=== PATIENT | female | born 1960 | race Caucasian/White ===

== ENCOUNTER 2016-06-18 16:02 | Emergency (ER) | payer SELFPAY ==
[2016-06-18] MEDS ORDERED: Lidocaine 2% Jelly 10 ML Urojet MUCMEM ONE (16:29)
[2016-06-18] MEDS ORDERED: HYDROmorphone 1 MG/ML Syringe IM ONE (16:35)
--- NOTE | 2016-06-18 16:57 | EDM.PDOC ---
ED HPI GI/ABDOMINAL - General Chief Complaint: Gastrointestinal Problem Stated Complaint: RECTAL PAIN Time Seen by Provider: 06/18/16 16:26 Source of Information: Reports: Patient History Limitations: Reports: No limitations - History of Present Illness INITIAL COMMENTS - FREE TEXT/NARRATIVE: Patient is a 55-year-old female who presents to the ED complaining of rectal pain. States she has a rectal fissure. She was evaluated by Dr. Polk today that required rectal exam. Since the exam patient has noted severe pain. Patient denies any bleeding or BM since evaluation. Last BM was this a.m. with formed stool and significant amount of pain. States she has multiple pelvic complaints and is being evaluated by DOCTOR OF CHIROPRACTIC specialist, urology, and of course Dr. Polk. She has a CT scheduled in 2 days to evaluate for nerve damage to the lower abdomen. The patient had a hernia repair many years ago with mesh that had to be removed and since then she's been experiencing increasing pain to the anterior aspect of her abdomen. In addition she's had a bladder mesh placed. She's had 3 C-sections. States discomfort currently experiencing to the pelvic region has not worsened with rectal discomfort. She offers no additional complaints. Timing/Duration: Reports: Constant, Getting worse Location: other (rectum) Quality: Reports: ache, throbbing Severity: severe Improves with: Reports: other (nothing) Worsens with: Reports: palpation - Related Data Allergies/ADRs: Allergies Allergy/AdvReac Type Severity Reaction Status Date / Time Sulfa (Sulfonamide Allergy Hives Verified 05/17/16 18:28 Antibiotics) Home Meds: Home Meds Ibuprofen 1,000 mg PO DAILY PRN 05/10/15 [History] Famotidine [Pepcid] 20 mg PO DAILY 06/18/16 [History] Past Medical History - Past Health History Medical/Surgical History: Denies Medical/Surgical History Other HEENT History: tooth extraction Gastrointestinal History: Reports: GERD Other Gastrointestinal History: Nausea [employer] CHIR[employer]RA[employer] History: Reports: 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, Musculoskeletal History: Reports: Back pain, chronic Neurological History: Reports: Concussion, Headaches, chronic Psychiatric History: Reports: Anxiety, Depression - Past Surgical History GI Surgical History: Reports: Hernia, abdominal Female Surgical History: Reports: section, Hysterectomy, Salpingo- oophorectomy, Tubal ligation Neurological Surgical History: Reports: C-Spine Musculoskeletal Surgical History: Reports: ORIF Social & Family History - Family History Family Medical History: Noncontributory - Tobacco Use Smoking Status *Q: Current Every Day Smoker Years of Tobacco use: 30 Packs/Tins Daily: 0.2 Used Tobacco, but Quit: No Second Hand Smoke Exposure: Yes - Caffeine Use Caffeine Use: Reports: Coffee - Recreational Drug Use Recreational Drug Use: No - Living Situation & Occupation Living situation: Reports: , with spouse Occupation: unemployed ED ROS GENERAL - Review of Systems Review Of Systems: See Below Constitutional: Denies: fever, chills, decreased appetite Respiratory: Denies: Shortness of Breath, Cough, Sputum Cardiovascular: Reports: Palpitations. Denies: Chest pain, Dyspnea on exertion , Lightheadedness, Syncope GI/Abdominal: Reports: Abdominal pain, Constipation, Diarrhea. Denies: Nausea, Vomiting : Reports: dysuria (chronic). Denies: discharge, flank pain, frequency, urgency, urinary retention Musculoskeletal: Reports: no symptoms Neurological: Denies: Dizziness Psychiatric: Reports: Anxiety ED EXAM, GI/ABD - Physical Exam Exam: See Below Exam Limited By: No limitations General Appearance: alert, WD/WN, moderate distress Eyes: bilateral: normal appearance Ears: hearing grossly normal Nose: normal inspection Throat/Mouth: Normal voice, No airway compromise Neck: normal inspection, supple Respiratory/Chest: no respiratory distress, lungs clear, normal breath sounds, no accessory muscle use Cardiovascular: normal peripheral pulses, regular rate, rhythm GI/Abdominal: normal bowel sounds, soft, non tender (mild tenderness to the lower abdmomen.This is chronic due to many surgies. Seeing Dr. Polk.), no organomegaly, no distention Rectal (Female) Exam: Tenderness (rectum), Other (No digital rectal exam performed. ). No: Hemorrhoids, Mass, Perirectal abscess Neurological: alert, oriented, normal cognition Psychiatric: normal affect, normal mood Skin Exam: Warm, Dry, Intact, Normal color Course - Vital Signs Last Recorded V/S: Last Vital Signs Temp 97.3 F 06/18/16 16:19 Pulse 63 06/18/16 19:22 Resp 14 06/18/16 19:22 BP 125/74 06/18/16 19:22 Pulse Ox 99 06/18/16 19:22 - Orders/Labs/Meds Orders: Active Orders 24 hr Category Date Time Status EKG 12 Lead [EKG Documentation Completion] [RC] STAT Care 06/18/16 16:45 Active Labs: Laboratory Tests 06/18/16 06/18/16 Range/Units 17:20 17:20 WBC 7.80 (3.98-10.04) K/mm3 RBC 3.85 L (3.98-5.22) M/mm3 Hgb 12.2 (11.2-15.7) gm/L Hct 35.4 (34.1-44.9) % MCV 91.9 (79.4-94.8) fl MCH 31.7 (25.6-32.2) pg MCHC 34.5 (32.2-35.5) g/dl RDW Std Deviation 42.2 (36.4-46.3) fL Plt Count 185 (182-369) K/mm3 MPV 9.4 (9.4-12.3) fl Neut % (Auto) 30.7 L (34.0-71.1) % Lymph % (Auto) 42.1 (19.3-51.7) % [place] % (Auto) 7.3 (4.7-12.5) % Eos % (Auto) 17.7 H (0.7-5.8) Baso % (Auto) 2.1 H (0.1-1.2) % Neut # 2.40 (1.56-6.13) K/mm3 Lymph # 3.28 (1.18-3.74) K/mm3 [place] # 0.57 H (0.24-0.36) K/mm3 Eos # 1.38 H (0.04-0.36) K/mm3 Baso # 0.16 H (0.01-0.08) K/mm3 Manual Slide Review Normal smear Sodium 138 (136-145) mEq/L Potassium 4.1 (3.5-5.1) mEq/L Chloride 102 (98-107) mEq/L Carbon Dioxide 27 (21-32) mEq/L Anion Gap 13.1 (5-15) BUN 8 (7-18) mg/dL Creatinine 0.7 (0.55-1.02) mg/dL Est Cr Clr Drug Dosing 69.33 mL/min Estimated GFR (MDRD) > 60 (>60) mL/min BUN/Creatinine Ratio 11.4 L (14-18) Glucose 96 (74-106) mg/dL Calcium 9.0 (8.5-10.1) mg/dL Total Bilirubin 0.6 (0.2-1.0) mg/dL AST 17 (15-37) U/L ALT 25 (14-59) U/L Alkaline Phosphatase 54 (46-116) U/L Troponin I < 0.017 (0.00-0.056) ng/mL C-Reactive Protein < 0.2 (<1.0) mg/dL Total Protein 6.8 (6.4-8.2) g/dl Albumin 3.9 (3.4-5.0) g/dl Globulin 2.9 gm/dL Albumin/Globulin Ratio 1.3 (1-2) Meds: Medications Discontinued Medications Generic Name Dose Route Start Last Admin Trade Name Freq PRN Reason Stop Dose Admin Hydromorphone HCl 1 mg 06/18/16 16:35 06/18/16 16:43 Dilaudid IM 06/18/16 16:36 1 mg ONETIME ONE Administration Lidocaine HCl 10 ml 06/18/16 16:29 06/18/16 16:44 Xylocaine 2% Jelly MUCMEM 06/18/16 16:30 10 ml ONETIME ONE Administration - Re-Assessments/Exams Free Text/Narrative Re-Assessment/Exam: Ordered Dilaudid 1mg IM and viscous lidocaine. 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 Examination did not reveal any external abnormalities. Tip of euroject placed into rectum Patient had pain with doing this. 2mls of solution injected. Dilaudid 1mg IM was administered as well. 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 She has felt anxious all day with recent events. She feels intermittent palpitations. Will obtain basic labs, CXR , and EKG. 06/18/16 16:53 06/18/16 18:15 labs reviewed: White blood cell count 7.0, hemoglobin is 12.2, platelet 25, sodium is 138, potassium 4.1, creatinine 0.7, troponin within normal limits. EKG: Sinus rhythm rate 64, normal p axis, NH interval 150, QTc 405. No acute ST changes noted. Telemetry strips reviewed: Sinus rhythm with occasional PAC' s. CXR reviewed by Dr. Sandoval and myself with no acute findings. Reassessment, patient resting comfortably in bed with significant decrease in pain with the above therapies. Will discharge patient home with instructions as documented. Departure - Departure Time of Disposition: 18:18 Disposition: Home, Self-Care 01 Condition: good Clinical Impression: Chronic rectal pain, Sinus arrhythmia Instructions: Anal Fissure, Adult, [id number] Referrals: PCP,None [Primary Care Provider] - Forms: ED Department Discharge Additional Instructions: No driving this evening with receiving a sedative medication while in the E.D. Take miralax 1 capful daily with copious amounts of water. Increase fiber intake. Take tylenol and ibuprofen in alternating fashion for pain as needed. Follow up with if you develop continued pain to rectum. Return to the E.D. for any new or worsening symptoms. - My Orders Last 24 Hours: My Active Orders 06/18/16 16:45 EKG 12 Lead [EKG Documentation Completion] [RC] STAT - Assessment/Plan Last 24 Hours: My Active Orders 06/18/16 16:45 EKG 12 Lead [EKG Documentation Completion] [RC] STAT
[2016-06-18 19:24] VITALS: BP 125/74
--- NOTE | 2016-06-19 07:10 | CR ---
Chest: Portable view of the chest was obtained. Comparison: Previous chest x-ray of 05/03/15. Heart size and mediastinum are normal. Lungs are clear. Bony structures are grossly intact. Impression: 1. Nothing acute is identified on portable chest x-ray. Diagnostic code #1
== END 2016-06-18 18:32 | disposition home or self-care (01) ==
LOC: JD.ED 16:02
DX: K62.89 Other specified diseases of anus and rectum (principal); I49.9 Cardiac arrhythmia, unspecified; G89.29 Other chronic pain; K21.9 Gastro-esophageal reflux disease without esophagitis; F41.8 Other specified anxiety disorders; F17.210 Nicotine dependence, cigarettes, uncomplicated; Z90.710 Acquired absence of both cervix and uterus; Z98.890 Other specified postprocedural states; Z79.899 Other long term (current) drug therapy; Z88.2 Allergy status to sulfonamides
CPT/HCPCS: 36415; 71010; 80053; 84484; 85025; 86140; 93005; 96372; 99284; J1170

== ENCOUNTER 2016-10-21 21:06 | Emergency (ER) | payer SELFPAY ==
[2016-10-21 21:19] VITALS: BP 123/86
[2016-10-21] MEDS ORDERED: Acetaminophen/oxyCODONE 325-5 MG Tab PO ONE (21:33)
[2016-10-21] MEDS ORDERED: Ondansetron 4 MG Tab.DIS PO ONE (21:33)
--- NOTE | 2016-10-21 21:59 | EDM.PDOC ---
ED HPI GENERAL MEDICAL PROBLEM - General Chief Complaint: Lower Extremity Injury/Pain Stated Complaint: INJURED RT LEG AND SHOULDER Time Seen by Provider: 10/21/16 21:23 Source of Information: Reports: Patient History Limitations: Reports: No Limitations - History of Present Illness INITIAL COMMENTS - FREE TEXT/NARRATIVE: The patient fell down the stairs this afternoon at 3pm. She slipped on the stairs and afshin her right shoulder and wrist and then fell on her right buttock and now she has pain to the right hip and right lower back. She has a history of a pelvic fracture. She not his her head or hurt her neck. She has no chest pain or abdominal pain. Onset: Sudden Duration: Hour(s): (3pm today) Location: Reports: Back (Lower), Pelvis, Lower Extremity, Right (Hip) Quality: Reports: Sharp Severity: Moderate Improves with: Reports: None Worsens with: Reports: Movement Context: Reports: Activity (Fell down the stairs) Associated Symptoms: Reports: No Other Symptoms Right Leg Pain Score (Numeric/FACES): 7 - Related Data Allergies Allergy/AdvReac Type Severity Reaction Status Date / Time Sulfa (Sulfonamide Allergy Hives Verified 10/21/16 21:18 Antibiotics) Home Meds: Home Meds Ibuprofen 1,000 mg PO DAILY PRN 05/10/15 [History] Famotidine [Pepcid] 20 mg PO DAILY PRN 06/18/16 [History] Past Medical History - Past Health History Medical/Surgical History: Denies Medical/Surgical History Other HEENT History: tooth extraction Gastrointestinal History: Reports: GERD 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 History: Reports: 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, Musculoskeletal History: Reports: Back Pain, Chronic, Other (See Below) Other Musculoskeletal History: broken pelvis and neck Neurological History: Reports: Concussion, Headaches, Chronic Other Neuro History: "scar on brain" Psychiatric History: Reports: Anxiety, Depression - Past Surgical History GI Surgical History: Reports: Hernia, Abdominal Female Surgical History: Reports: Section, Hysterectomy, Salpingo- Oophorectomy, Tubal Ligation Social & Family History - Family History Family Medical History: Noncontributory - Tobacco Use Smoking Status *Q: Current Every Day Smoker Years of Tobacco use: 25 Packs/Tins Daily: 0.5 Used Tobacco, but Quit: No Second Hand Smoke Exposure: Yes - Caffeine Use Caffeine Use: Reports: Coffee - Recreational Drug Use Recreational Drug Use: No - Living Situation & Occupation Living situation: Reports: , with Spouse Occupation: Unemployed Review of Systems - Review of Systems Review Of Systems: See Below Constitutional: Reports: No Symptoms Eyes: Reports: No Symptoms Ears: Reports: No Symptoms Nose: Reports: No Symptoms Mouth/Throat: Reports: No Symptoms Respiratory: Reports: No Symptoms Cardiovascular: Reports: No Symptoms GI/Abdominal: Reports: No Symptoms Genitourinary: Reports: No Symptoms Musculoskeletal: Reports: Back Pain, Other (right hip and pelvis) ED EXAM, GENERAL - Physical Exam Exam: See Below Exam Limited By: No Limitations General Appearance: Alert, No Apparent Distress Ears: Normal External Exam Nose: Normal Inspection Head: Atraumatic, Normocephalic Neck: Normal Inspection Respiratory/Chest: No Respiratory Distress, Lungs Clear, Normal Breath Sounds Cardiovascular: Regular Rate, Rhythm, No Edema, No Murmur GI/Abdominal: Soft, Non-Tender, No Organomegaly, No Mass Back Exam: Other (Pain upon palpation to the lower back.) Extremities: Other (Pain upon palpation to the anterior shoulder and pain to the right hip and pelvis. Good sensation and pulses distally.) Neurological: Alert, Oriented, No Motor/Sensory Deficits Course - Vital Signs Last Recorded V/S: Last Vital Signs Temp 97.2 F 10/21/16 21:11 Pulse 87 10/21/16 21:11 Resp 18 10/21/16 21:11 BP 123/86 10/21/16 21:11 Pulse Ox 98 10/21/16 21:11 - Orders/Labs/Meds Orders: Active Orders 24 hr Category Date Time Status Hip Min 2V or 3V w Pelvis Rt [CR] Stat Exams 10/21/16 21:34 Taken Lumbar Spine 2 or 3V [CR] Stat Exams 10/21/16 21:34 Taken Meds: Medications Discontinued Medications Generic Name Dose Route Start Last Admin Trade Name Tanvi PRN Reason Stop Dose Admin Ondansetron HCl 4 mg 10/21/16 21:33 10/21/16 21:39 Zofran Odt PO 10/21/16 21:34 4 mg ONETIME ONE Administration Oxycodone/Acetaminophen 2 tab 10/21/16 21:33 10/21/16 21:39 Percocet 325-5 Mg PO 10/21/16 21:34 2 tab ONETIME ONE Administration - Re-Assessments/Exams Free Text/Narrative Re-Assessment/Exam: 10/21/16 21:58 I ordered zofran 4mg ODT because she is nauseated. I gave her 2 percocet and I will get x-rays. 10/21/16 22:31 Her x-rays look good. I will discharge her home with something for pain. Departure - Departure Time of Disposition: 22:35 Disposition: Home, Self-Care 01 Condition: Good Clinical Impression: Fall Qualifiers: Encounter type: initial encounter Qualified Code(s): W19.XXXA - Unspecified fall, initial encounter Lumbar strain Qualifiers: Encounter type: initial encounter Qualified Code(s): S39.012A - Strain of muscle, fascia and tendon of lower back, initial encounter Contusion of right hip Qualifiers: Encounter type: initial encounter Qualified Code(s): S70.01XA - Contusion of right hip, initial encounter - Discharge Information Referrals: Valarie Montgomery PA [Physician Professor Of Art History] - 1 Week Forms: ED Department Discharge Additional Instructions: Ice the areas that hurt for 15 minutes every other hour while awake for 2 days. Take the pain medications as needed. Please return if you are worse. - My Orders Last 24 Hours: My Active Orders 10/21/16 21:34 Hip Min 2V or 3V w Pelvis Rt [CR] Stat Lumbar Spine 2 or 3V [CR] Stat - Assessment/Plan Last 24 Hours: My Active Orders 10/21/16 21:34 Hip Min 2V or 3V w Pelvis Rt [CR] Stat Lumbar Spine 2 or 3V [CR] Stat
--- NOTE | 2016-10-22 09:04 | CR ---
Pelvis and right hip: AP view of the pelvis was obtained as well as AP and frog-leg lateral views of the right hip. Comparison: Previous pelvis and right hip exam of 07/18/16. Joint spaces within both hips are maintained. Sacroiliac joints appear within normal limits. No fracture, dislocation or other bony abnormality is seen. Impression: 1. No abnormality is identified on AP pelvis or on two-view right hip study. Diagnostic code #1
--- NOTE | 2016-10-22 09:04 | CR ---
Lumbar spine: AP and lateral views of the lumbar spine were obtained. Comparison: Previous lumbar spine exam of 07/18/16. Vertebral body heights and disc spaces are maintained. Pedicles as well as transverse and spinous processes are intact. No subluxation or fracture is seen. Sacroiliac joints appear within normal limits. Mild atherosclerotic calcification is seen within the aorta. Impression: 1. Incidental findings. Two-view lumbar spine exam shows nothing acute. No significant change is seen from prior study. Diagnostic code #2
== END 2016-10-21 22:45 | disposition home or self-care (01) ==
LOC: JD.ED 21:06
DX: S39.012A Strain of muscle, fascia and tendon of lower back, initial encounter (principal); S70.01XA Contusion of right hip, initial encounter; K21.9 Gastro-esophageal reflux disease without esophagitis; F17.210 Nicotine dependence, cigarettes, uncomplicated; Z88.2 Allergy status to sulfonamides; Z79.899 Other long term (current) drug therapy; Z90.710 Acquired absence of both cervix and uterus; W19.XXXA Unspecified fall, initial encounter
CPT/HCPCS: 72100; 73502; 99283; A9270

== ENCOUNTER 2017-01-08 14:22 | Emergency (ER) | payer SELFPAY ==
[2017-01-08 14:34] VITALS: BP 143/88
--- NOTE | 2017-01-08 15:12 | EDM.PDOC ---
ED HPI GENERAL MEDICAL PROBLEM - General Chief Complaint: Syncope Stated Complaint: SYNCOPE/BACK AND LEFT HAND INJURY FROM FALL Time Seen by Provider: 01/08/17 14:51 Source of Information: Reports: Patient History Limitations: Reports: No Limitations - History of Present Illness INITIAL COMMENTS - FREE TEXT/NARRATIVE: 56-year-old female presents to the ED reporting that she fell after a sudden onset of vertigo-like attack causing her to fall face first about 4 feet off of a porch. She landed on outstretched hands. Did injure her left fifth finger with deformity and bruising and pain. She escaped injury to her midface. Some cervical neck pain. Pain in her upper shoulder areas along the clavicles and trapezius muscles. She's been ill with a paroxysmal cough with fever and chills for the better part of 2 weeks. Associated nasal congestion. Hurt her mid thoracic and upper lumbar spine during this fall. Mild contusion to the left anterior knee. She is osteopenic by history with iatrogenic menopause with total abdominal hysterectomy and BSO carried out 17 years ago. She reports recurrent similar type falls with syncopal-like events off and on for the last 4 years. Falls at least once or twice a year for no good reason.appears to have benign positional vertigo or paroxysmal benign positional vertigo that helps her fall. Plan CT maxillofacial sinuses.chest x-ray 2 view because she is coughing so badly. I will also let me look in her clavicles. An x-ray of her left fifth finger will be done because it's deformed in the middle phalanx and likely fractured. X-rays of her thoracic and lumbar spine were done with AP and lateral views. Patient doesn't have insurance at this time and therefore CT was cost prohibitive. I also did not order any lab work because of the above and she is afebrile. Onset: Other (she fell 6 days ago) Onset Date: 01/03/17 Duration: Day(s): Location: Reports: Neck, Chest, Back (mid and lower back.), Upper Extremity, Left (left fifth finger injury and deformity.), Lower Extremity, Left (minimal contusion to the left knee which is healing.) Quality: Reports: Ache, Stabbing, Other (worse with certain movements particularly in her back. Pain radiates up and down the spine not laterally.) Severity: Moderate (pain is 6-7 out of 10.) Improves with: Reports: Rest Worsens with: Reports: Movement Context: Reports: Trauma (by history a paroxysmal vertigo attack causing her to fall forwards about 4 feet off of a porch. Landed on outstretched hands and diminished to spare her face and head.injuries occurred 6 days ago care was delayed because she does not have any health insurance.). Denies: Activity, Exercise, Lifting, Sick Contact Associated Symptoms: Reports: Chest Pain, Cough, cough w sputum (for over 2 weeks with productive cough.), Fever/Chills (greenish sputum), Headaches ( especially into her initially with her cough and cold symptoms.), Loss of Appetite, Malaise, Shortness of Breath, Weakness. 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 Middle Back Pain Score (Numeric/FACES): 10 - Related Data Allergies Allergy/AdvReac Type Severity Reaction Status Date / Time Sulfa (Sulfonamide Allergy Hives Verified 10/21/16 21:18 Antibiotics) Home Meds: Home Meds Ibuprofen 800 mg PO DAILY PRN 05/10/15 [History] Cyclobenzaprine [Flexeril] 10 mg PO BEDTIME #10 tablet 01/08/17 [Rx] Minocycline HCl 100 mg PO BID #20 capsule 01/08/17 [Rx] oxyCODONE HCl/Acetaminophen [Percocet 5-325 mg Tablet] 1 - 2 each PO Q4H PRN # 20 tablet 01/08/17 [Rx] Past Medical History - Past Health History Medical/Surgical History: Denies Medical/Surgical History Other HEENT History: tooth extraction Gastrointestinal History: Reports: GERD Other Gastrointestinal History: Nausea 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: 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, Musculoskeletal History: Reports: Back Pain, Chronic, Other (See Below) Other Musculoskeletal History: broken pelvis and neck Neurological History: Reports: Concussion, Headaches, Chronic Other Neuro History: "scar on brain" Psychiatric History: Reports: Anxiety, Depression - Past Surgical History GI Surgical History: Reports: Hernia, Abdominal Female Surgical History: Reports: Section, Hysterectomy, Salpingo- Oophorectomy, Tubal Ligation Social & Family History - Family History Family Medical History: Noncontributory - Tobacco Use Smoking Status *Q: Current Every Day Smoker Years of Tobacco use: 30 Packs/Tins Daily: 0.5 Used Tobacco, but Quit: No Second Hand Smoke Exposure: Yes - Caffeine Use Caffeine Use: Reports: Coffee, Tea - Recreational Drug Use Recreational Drug Use: No - Living Situation & Occupation Living situation: Reports: , with Spouse Occupation: Unemployed ED ROS GENERAL - Review of Systems Review Of Systems: See Below Constitutional: Reports: Fever, Chills, Malaise, Weakness, Decreased Appetite. Denies: Weight Loss HEENT: Reports: No Symptoms Respiratory: Reports: Shortness of Breath, Cough, Sputum. Denies: Wheezing, Hemoptysis Cardiovascular: Reports: Chest Pain (hurts in her upper anterior chest along the clavicles from the fall.), Dyspnea on Exertion. Denies: Blood Pressure Problem, Claudication, Edema, Lightheadedness, Orthopnea, Palpitations Endocrine: Reports: Fatigue GI/Abdominal: Denies: Abdominal Pain : Reports: No Symptoms Musculoskeletal: Reports: Back Pain (particularly the lower thoracic and upper lumbar back pain.), Hand Pain (injury to the left fifth finger.) Skin: Reports: Bruising (left fifth finger) Neurological: Reports: Gait Disturbance (believed to be due to vertigo). Denies : Confusion, Dizziness, Headache, Numbness, Paresthesia, Pre-Existing Deficit, Seizure, Syncope, Tingling, Tremors, Trouble Speaking, Difficulty Walking, Weakness, Change in Speech Psychiatric: Reports: No Symptoms Hematologic/Lymphatic: Reports: No Symptoms Immunologic: Reports: No Symptoms - Physical Exam Exam: See Below Exam Limited By: No Limitations General Appearance: Alert, WD/WN, No Apparent Distress Eye Exam: Bilateral Eye: Normal Inspection Ears: Other (does have mild left-sided CLARK.) Nose: Normal Inspection Throat/Mouth: Normal Inspection, Normal Lips, Normal Teeth, Normal Oropharynx Head Exam: Atraumatic, Normocephalic Neck: Full Range of Motion, Tender Lateral. No: Carotid Bruit, Lymphadenopathy (L), Lymphadenopathy (R) Respiratory/Chest: No Respiratory Distress, Lungs Clear, Normal Breath Sounds, No Accessory Muscle Use, Other. No: Rales, Rhonchi, Wheezing Cardiovascular: Normal Peripheral Pulses (does have a productive sounding cough at times.), Regular Rate, Rhythm, No Edema, No Gallop, No Murmur GI/Abdominal: Normal Bowel Sounds, Soft, Non-Tender, No Organomegaly, No Abnormal Bruit Neuro Exam (Abbreviated): Alert, Oriented, CN II-XII Intact, Normal Cognition, Normal Gait, Normal Reflexes, No Motor/Sensory Deficits Back Exam: Muscle Spasm (left thoracic spine from T6-T12.), Vertebral Tenderness (from thoracic 5 to lumbar to she is exquisitely tender in the midline. I cannot find any offset of the spinous processes. Mild paraspinal muscle spasm left thoracic spine fro) Extremities: Other (ecchymoses swelling and deformity of the middle phalanx left fifth finger. This creates a slight deformity. Suspect fracture middle phalanx) Psychiatric: Normal Affect (vladimir), Normal Mood (spi) Skin Exam: Warm (nal), Dry ( ), Intact (mu), Normal Color (scl), No Rash (e spasm left thoracic s) Course - Vital Signs Last Recorded V/S: Last Vital Signs Temp 36.4 C 01/08/17 14:32 Pulse 96 01/08/17 14:32 Resp 12 01/08/17 14:32 BP 143/88 H 01/08/17 14:32 Pulse Ox 100 01/08/17 14:32 - Orders/Labs/Meds Orders: Active Orders 24 hr Category Date Time Status Chest 2V [CR] Stat Exams 01/08/17 14:55 Taken Fingers Fifth Digit Lt F4 [CR] Stat Exams 01/08/17 14:52 Taken Lumbar Spine 2 or 3V [CR] Stat Exams 01/08/17 14:54 Taken Thoracic Spine 2V [CR] Stat Exams 01/08/17 14:53 Taken - Radiology Interpretation Free Text/Narrative:: 56-year-old female presents the ED for 6 days after a fall. She reports she suddenly lost her balance and fell and by history she is been experiencing similar type events off and on for the last 4 years. This suggest a benign positional paroxysmal vertigo as a cause of her symptoms. She did not injure her head or neck at this time. She had injuries to her left index finger which is deformed and swollen. Suspect fracture middle phalanx clinically. Pain throughout her thoracic and lumbar spine. Paroxysmal cough with congestion and bronchitis symptoms for 2 weeks. Sinus congestion as well which may be contributing to the vertigo. Contusion to her left anterior knee. Plan two-view chest x-ray one view x-ray of her left index finger AP and lateral x-rays of her thoracic and lumbar spine and CT maxillofacial sinuses. - Re-Assessments/Exams Free Text/Narrative Re-Assessment/Exam: 01/08/17 16:11x-ray of the left fifth finger reveals a slight corner fracture of the ulnar aspect of the proximal middle phalanx. There is no true dislocation. Swelling is of the joint is causing the deformity. Treatment will be geoff taping it to the fourth finger for the next [address] of the maxillofacial sinuses reveals no sinus infection she does have very prominent turbinates compatible with some allergic rhinitis. Visualized portions of the mastoids do not reveal any erosive processes to suggest a acoustic neuroma. Chest x-ray two-view does not reveal any signs of pneumonia or infection. Does have a bronchitis clinically. X-rays of her thoracic and lumbar spine are completely normal without any compression fractures or malalignment. Treatment will therefore be conservative as she appears to sprain the muscles and ligaments of her mid and lower back. Not working at present time. We'll place her on minocycline 100 mg by mouth twice daily for the next 10 days to clear up bronchitis. Percocet 5/3/25 milligram tablets one or 2 every 4-6 hours for pain relief primarily at bedtime. 20 tablets were provided. Suggest anti- inflammatory Aleve 2 tablets every 8 hours until back pain settles down. Departure - Departure Time of Disposition: 16:14 Disposition: Home, Self-Care 01 Condition: Fair Clinical Impression: Strain of muscle and tendon of back wall of thorax, initial encounter, Bronchitis Lumbar spine strain Qualifiers: Encounter type: initial encounter Qualified Code(s): S39.012A - Strain of muscle, fascia and tendon of lower back, initial encounter Fracture of phalanx of finger Qualifiers: Encounter type: initial encounter Finger: little finger Fracture type: closed Phalanx: middle Fracture alignment: nondisplaced Laterality: left Qualified Code (s): S62.657A - Nondisplaced fracture of medial phalanx of left little finger, initial encounter for closed fracture Benign paroxysmal positional vertigo Qualifiers: Laterality: unspecified laterality Qualified Code(s): H81.10 - Benign paroxysmal vertigo, unspecified ear - Discharge Information Prescriptions: Cyclobenzaprine [Flexeril] 10 mg PO BEDTIME #10 tablet Minocycline HCl 100 mg PO BID #20 capsule oxyCODONE HCl/Acetaminophen [Percocet 5-325 mg Tablet] 1 - 2 each PO Q4H PRN # 20 tablet PRN Reason: pain relief. Instructions: Finger Fracture, [id number], Lumbosacral Strain Referrals: PCP,None [Primary Care Provider] - Forms: ED Department Discharge Additional Instructions: evaluation the emergency room today in regards to injuries sustained from a fall 6 days ago. By history mild strain of the cervical spine or neck. Likely contusion to the anterior chest wall with some pain in the upper chest collar bones and upper back muscles. Strain of the thoracic and lumbar spine ligaments and muscles as x-rays do not reveal any broken bones. History of paroxysmal cough for 2 weeks compatible with bronchitis. Chest x-ray did not reveal any signs of pneumonia. X-ray of the left fifth finger which was injured during a fall reveals a corner fracture of the middle phalanx which is well aligned and in good position. It is caused the joint to become very swollen and making the finger looked deformed. Treatment of this is to geoff tape it to the fourth finger for the next 2 weeks until it can start to heal well. After this her to move it as much as possible ie use it regularlyto prevent it from getting stiff. CT scan of the maxillofacial sinuses was done to rule out any sinus infection continuing to your vertigo which is causing you to fall intermittently. Similarly no signs of acoustic neuroma or tumor of the eighth cranial nerve was identified on CT or evidence of chronic sinus infection in the mastoid process is behind her ear. There is some swelling of the turbinates in her nose suggesting's chronic mild allergy issues. Treatment is time to get better. Suggest use of Percocet tabs 5//25 one tablet every 4-6 hours as necessary for pain relief. Suggest either Motrin 600 mg every 6 hours or Aleve 2 tablets every 8 hours until your back is feeling better. Will also help the pain in her left finger and reduce some of the swelling. For your bronchitis I would suggest antibiotic minocycline 100 mg twice daily for 10 days to clear up infection. Geoff tape the left fourth and fifth fingers together for 2 weeks. No follow-up should be necessary.. - My Orders Last 24 Hours: My Active Orders 01/08/17 14:52 Fingers Fifth Digit Lt F4 [CR] Stat 01/08/17 14:53 Thoracic Spine 2V [CR] Stat 01/08/17 14:54 Lumbar Spine 2 or 3V [CR] Stat 01/08/17 14:55 Chest 2V [CR] Stat - Assessment/Plan Last 24 Hours: My Active Orders 01/08/17 14:52 Fingers Fifth Digit Lt F4 [CR] Stat 01/08/17 14:53 Thoracic Spine 2V [CR] Stat 01/08/17 14:54 Lumbar Spine 2 or 3V [CR] Stat 01/08/17 14:55 Chest 2V [CR] Stat
--- NOTE | 2017-01-08 15:47 | CT ---
CT maxillofacial Technique: Multiple axial sections were obtained from above the frontal sinuses inferiorly through the inferior maxillary sinuses. Findings: Inward displacement of the medial left orbital wall is seen compatible with old healed blowout fracture. Middle ear cavities are clear. Sphenoid sinus, frontal sinuses, ethmoid and maxillary sinuses are clear. Margot bullosa are noted within both middle nasal turbinate. Mild nasal septal deviation is seen. No air-fluid levels are seen within the sinuses. No acute fracture or other abnormality is seen. Impression: 1. Incidental findings as described above. 2. Nothing acute is seen. Diagnostic code #2
--- NOTE | 2017-01-08 17:40 | CR ---
Lumbar spine: AP and lateral views of the lumbar spine were obtained. Comparison: Previous lumbar spine exam of 10/21/16. Vertebral body heights and disc spaces are maintained. Pedicles as well as transverse and spinous processes are intact. No subluxation or fracture is seen. Impression: 1. Nothing acute is seen on two-view lumbar spine study. No significant change is seen from prior study. Diagnostic code #2
--- NOTE | 2017-01-08 17:40 | CR ---
Left fifth finger: PA view of the left hand was obtained as well as 3 views of the left fifth finger. Slight joint space narrowing and degenerative change are seen within the PIP and DIP joints of the fifth finger. No acute fracture is definitely appreciated. Impression: 1. Degenerative change within the fifth digit. Nothing acute is definitely seen. If patient remains symptomatic, recommend repeat study in 10-14 days. Diagnostic code #2
--- NOTE | 2017-01-08 17:40 | CR ---
Chest: Two views of the chest were obtained. Comparison: Previous chest x-ray of 06/18/16. Heart size and mediastinum are normal. Lungs are clear. Bony structures are unremarkable for the patient's age. Incidental note of old healed left lower rib fracture. Impression: 1. Nothing acute is appreciated. Diagnostic code #2
--- NOTE | 2017-01-08 17:40 | CR ---
Thoracic spine: Lateral and AP views of the thoracic spine were obtained. Disc space narrowing partially visualized within the lower cervical spine. Endplate concavities are seen within several upper thoracic vertebral bodies which are felt to be present on lateral chest x-ray of 03/27/14 and therefore old. Other vertebral body heights are maintained. Pedicles are intact. No subluxation or fracture is seen. Impression: 1. Slight superior endplate concavities within several upper thoracic vertebral bodies which are felt to be old. 2. Disc space narrowing within the lower visualized cervical spine. 3. Two view thoracic spine study is otherwise unremarkable. Diagnostic code #2
== END 2017-01-08 16:30 | disposition home or self-care (01) ==
LOC: JD.ED 14:22
DX: S62.657A Nondisplaced fracture of middle phalanx of left little finger, initial encounter for closed fracture (principal); S29.012A Strain of muscle and tendon of back wall of thorax, initial encounter; S39.012A Strain of muscle, fascia and tendon of lower back, initial encounter; H81.10 Benign paroxysmal vertigo, unspecified ear; K21.9 Gastro-esophageal reflux disease without esophagitis; F32.9 Major depressive disorder, single episode, unspecified; F17.210 Nicotine dependence, cigarettes, uncomplicated; Z90.710 Acquired absence of both cervix and uterus; Z79.899 Other long term (current) drug therapy; Z88.2 Allergy status to sulfonamides; W19.XXXA Unspecified fall, initial encounter
CPT/HCPCS: 70486; 70486-26; 71020; 71020-26; 72070; 72070-26; 72100; 72100-26; 73140-26-F4; 73140-F4; 99284; 99284-25

== ENCOUNTER 2019-01-03 12:03 | Emergency (ER) | payer SELFPAY ==
[2019-01-03 12:14] VITALS: BP 133/96; PULSE 83
--- NOTE | 2019-01-03 12:38 | EDM.PDOC ---
ED HPI GENERAL MEDICAL PROBLEM - General Chief Complaint: General Stated Complaint: RIB PAIN, SORE THROAT Time Seen by Provider: 01/03/19 12:13 Source of Information: Reports: Patient History Limitations: Reports: No Limitations - History of Present Illness INITIAL COMMENTS - FREE TEXT/NARRATIVE: The patient presents with a sore throat. This has been going on for a few days. She also has a cough and felt pain and a pop after coughing. She has a fever at times. She also has some nausea and diarrhea. She has no dysuria. She has no shortness of breath. Onset: Gradual Duration: Day(s): Location: Reports: Chest, Other (throat) Quality: Reports: Sharp Severity: Moderate Improves with: Reports: Immobilization Worsens with: Reports: Movement Associated Symptoms: Reports: Cough, Fever/Chills, Headaches, Nausea/Vomiting. 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, Musculoskeletal History: Reports: Back Pain, Chronic, Other (See Below) Other Musculoskeletal History: broken pelvis and neck Neurological History: Reports: Concussion, Headaches, Chronic Other Neuro History: "scar on brain" Psychiatric History: Reports: Anxiety, Depression - Past Surgical History HEENT Surgical History: Reports: Oral Surgery GI Surgical History: Reports: Hernia, Abdominal Female Surgical History: Reports: Section, Hysterectomy, Salpingo- Oophorectomy, Tubal Ligation Social & Family History - Family History Family Medical History: Noncontributory - Tobacco Use Smoking Status *Q: Current Every Day Smoker Years of Tobacco use: 25 Packs/Tins Daily: 0.5 - Caffeine Use Caffeine Use: Reports: None - Recreational Drug Use Recreational Drug Use: No - Living Situation & Occupation Living situation: Reports: , with Spouse Occupation: Unemployed ED ROS GENERAL - Review of Systems Review Of Systems: See Below Constitutional: Reports: No Symptoms HEENT: Reports: Throat Pain Respiratory: Reports: Cough Cardiovascular: Reports: Chest Pain Endocrine: Reports: No Symptoms GI/Abdominal: Reports: Diarrhea, Nausea. Denies: Abdominal Pain, Vomiting : Reports: No Symptoms Musculoskeletal: Reports: No Symptoms ED EXAM, GENERAL - Physical Exam Exam: See Below Exam Limited By: No Limitations General Appearance: Alert, No Apparent Distress Ears: Normal External Exam Nose: Normal Inspection Throat/Mouth: Other (Mild erythema of the pharynx) Head: Atraumatic, Normocephalic Neck: Normal Inspection, Supple, Non-Tender Respiratory/Chest: No Respiratory Distress, Lungs Clear, Normal Breath Sounds, Other (Pain upon palpation to the right, lower lateral ribs) Cardiovascular: Regular Rate, Rhythm, No Edema, No Murmur GI/Abdominal: Soft, Non-Tender, No Organomegaly, No Mass Back Exam: Normal Inspection Extremities: Normal Inspection Course - Vital Signs Last Recorded V/S: Last Vital Signs Temp 98.3 F 01/03/19 12:10 Pulse 83 01/03/19 12:10 Resp 19 01/03/19 12:10 BP 133/96 H 01/03/19 12:10 Pulse Ox 99 01/03/19 12:10 - Orders/Labs/Meds Orders: Active Orders 24 hr Category Date Time Status CXR [Chest 2V] [CR] Stat Exams 01/03/19 12:33 Taken CULTURE STREP A CONFIRMATION [RM] Stat Lab 01/03/19 12:35 Results STREP SCRN A RAPID W CULT CONF [RM] Stat Lab 01/03/19 12:35 Results - Re-Assessments/Exams Free Text/Narrative Re-Assessment/Exam: 01/03/19 12:37 I have ordered a strep screen and a CXR. 01/03/19 13:11 Her CXR looks good. Her rapid strep was negative. I will discharge her home with some phenergan with codeine. Departure - Departure Time of Disposition: 13:15 Disposition: Home, Self-Care 01 Condition: Good Clinical Impression: Viral URI, Chest wall pain - Discharge Information *PRESCRIPTION DRUG MONITORING PROGRAM REVIEWED*: No *COPY OF PRESCRIPTION DRUG MONITORING REPORT IN PATIENT JO ANN: No Prescriptions: Codeine/Promethazine [Phenergan with Codeine] 5 - 10 ml PO Q6HR PRN #300 ml PRN Reason: Cough Referrals: PCP,None [Primary Care Provider] - Forms: ED Department Discharge, ED Return to Work/School Form Additional Instructions: Take tylenol or motrin for pain or fever. Use the phenergan with codeine every 6 hours as needed for cough. Drink plenty of fluids and please return if you are worse. - My Orders Last 24 Hours: My Active Orders 01/03/19 12:33 CXR [Chest 2V] [CR] Stat 01/03/19 12:35 CULTURE STREP A CONFIRMATION [RM] Stat STREP SCRN A RAPID W CULT CONF [RM] Stat - Assessment/Plan Last 24 Hours: My Active Orders 01/03/19 12:33 CXR [Chest 2V] [CR] Stat 01/03/19 12:35 CULTURE STREP A CONFIRMATION [RM] Stat STREP SCRN A RAPID W CULT CONF [] Stat
--- NOTE | 2019-01-03 15:00 | CR ---
Chest: Two views of the chest were obtained. Comparison: Prior chest x-ray of 08/25/18. Heart size and mediastinum are normal. Lungs are clear with no acute parenchymal change. Bony structures appear within normal limits. Impression: 1. Nothing acute is seen on two-view chest x-ray. Diagnostic code #1
== END 2019-01-03 13:35 | disposition home or self-care (01) ==
LOC: JD.ED 12:03
DX: J06.9 Acute upper respiratory infection, unspecified (principal); R07.89 Other chest pain; Z88.2 Allergy status to sulfonamides; F17.200 Nicotine dependence, unspecified, uncomplicated
CPT/HCPCS: 71046; 71046-26; 87081; 87430; 99283; 99283-25

== ENCOUNTER 2019-04-18 14:43 | Emergency (ER) | payer OTHER ==
[2019-04-18 15:07] VITALS: BP 161/83; PULSE 89
--- NOTE | 2019-04-18 15:27 | EDM.PDOC ---
ED HPI GENERAL MEDICAL PROBLEM - General Chief Complaint: Respiratory Problem Stated Complaint: COUGH /CONGESTION/ SOB Time Seen by Provider: 04/18/19 14:59 Source of Information: Reports: Patient, RN Notes Reviewed - History of Present Illness INITIAL COMMENTS - FREE TEXT/NARRATIVE: Has been ill with cough, chad for about a week, has become much worse in the past 2 to 3 days, Now has fever, chills, Jimenez, muscle aching, low energy. Has had a lot of Influ. exposure at work for the past 2 wks, Did not get a flu shot this year. Generalized Pain Score (Numeric/FACES): 5 - Related Data Allergies Allergy/AdvReac Type Severity Reaction Status Date / Time Sulfa (Sulfonamide Allergy Hives Verified 04/18/19 14:59 Antibiotics) Home Meds: Home Meds . 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: 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, Musculoskeletal History: Reports: Back Pain, Chronic, Other (See Below) Other Musculoskeletal History: broken pelvis and neck Neurological History: Reports: Concussion, Headaches, Chronic Other Neuro History: "scar on brain" Psychiatric History: Reports: Anxiety, Depression - Past Surgical History HEENT Surgical History: Reports: Oral Surgery GI Surgical History: Reports: Hernia, Abdominal Female Surgical History: Reports: Section, Hysterectomy, Salpingo- Oophorectomy, Tubal Ligation Social & Family History - Family History Family Medical History: Noncontributory - Tobacco Use Smoking Status *Q: Current Every Day Smoker Years of Tobacco use: 20 Packs/Tins Daily: 0.5 - Caffeine Use Caffeine Use: Reports: Coffee - Recreational Drug Use Recreational Drug Use: No - Living Situation & Occupation Living situation: Reports: , with Spouse Occupation: Unemployed ED ROS GENERAL - Review of Systems Review Of Systems: See Below Constitutional: Denies: Fever, Chills HEENT: Reports: Rhinitis, Throat Pain Respiratory: Reports: Cough, Sputum. Denies: Shortness of Breath, Wheezing Cardiovascular: Reports: Chest Pain (with coughing). Denies: Edema GI/Abdominal: Denies: Abdominal Pain, Nausea, Vomiting Musculoskeletal: Reports: Other (generalized achiness) Skin: Reports: No Symptoms. Denies: Rash Neurological: Reports: Dizziness, Headache ED EXAM, GENERAL - Physical Exam Exam: See Below General Appearance: Alert, Mild Distress Ears: Normal External Exam Nose: Normal Inspection Throat/Mouth: Normal Inspection, Normal Oropharynx Head: Atraumatic Neck: Supple Respiratory/Chest: No Respiratory Distress, Lungs Clear, Normal Breath Sounds. No: Rhonchi, Wheezing Cardiovascular: Regular Rate, Rhythm GI/Abdominal: Soft, Non-Tender Back Exam: No: CVA Tenderness (L), CVA Tenderness (R) Extremities: Normal Inspection, Normal Range of Motion. No: Leg Pain, Increased Warmth, Redness Neurological: Alert, Oriented, No Motor/Sensory Deficits Skin Exam: Warm, Dry, Normal Color Course - Vital Signs Last Recorded V/S: Last Vital Signs Temp 97.8 F 04/18/19 15:04 Pulse 89 04/18/19 15:04 Resp 16 04/18/19 15:04 BP 161/83 H 04/18/19 15:04 Pulse Ox 100 04/18/19 15:04 - Orders/Labs/Meds Meds: Medications Discontinued Medications Generic Name Dose Route Start Last Admin Trade Name Freq PRN Reason Stop Dose Admin Azithromycin 500 mg 04/18/19 15:57 04/18/19 16:28 Zithromax PO 04/18/19 15:58 500 mg ONETIME ONE Administration - Re-Assessments/Exams Free Text/Narrative Re-Assessment/Exam: 04/19/19 14:41 CXR nl, discharge instr. as documented. Departure - Departure Time of Disposition: 15:58 Disposition: Home, Self-Care 01 Condition: Fair Clinical Impression: Influenza, Bronchitis - Discharge Information Instructions: Influenza, Adult, [id number], Acute Bronchitis, Adult, Easy-to- Read Referrals: PCP,None [Primary Care Provider] - Forms: ED Department Discharge Additional Instructions: zithromax antibiotic. You have been given your first dose here in the ED. Fill the prescription tomorrow and continue as prescribed. Phenergan with cough medication 2 teaspoons or 10 ml q 4 to 6 hr as needed for severe cough. Vaporizer or steam as needed. Tylenol q 6 to 8 hr as needed. follow up clinic if not much better within 3 to 4 days as expected. Sepsis Event Note - Evaluation Sepsis Screening Result: No Definite Risk - Focused Exam Date Exam was Performed: 04/19/19 Time Exam was Performed: 14:40
[2019-04-18] MEDS ORDERED: Azithromycin 250 MG Tab PO ONE (15:57)
--- NOTE | 2019-04-18 17:49 | CR ---
Chest: Two views of the chest were obtained. Comparison: Chest x-ray of 01/03/19. Heart size and mediastinum are normal. Lungs are clear. Bony structures are unremarkable. Impression: 1. Nothing acute is seen on two-view chest x-ray. Diagnostic code #1 This report was dictated in [place] Standard Time
== END 2019-04-18 16:31 | disposition home or self-care (01) ==
LOC: JD.ED 14:43
DX: J11.1 Influenza due to unidentified influenza virus with other respiratory manifestations (principal); J40 Bronchitis, not specified as acute or chronic; F17.210 Nicotine dependence, cigarettes, uncomplicated; Z98.890 Other specified postprocedural states; Z90.710 Acquired absence of both cervix and uterus; Z98.51 Tubal ligation status; Z88.2 Allergy status to sulfonamides
CPT/HCPCS: 71046; 99283; A9270

== ENCOUNTER 2019-06-18 11:32 | Emergency (ER) | payer OTHER ==
[2019-06-18 11:48] VITALS: BP 159/90; PULSE 84
[2019-06-18] MEDS ORDERED: Sodium Chloride 0.9% 10 ML Syringe FLUSH PRN ×2 (12:14→12:35)
[2019-06-18] MEDS ORDERED: Ketorolac 30 MG/ML SDV IVPUSH ONE (12:14)
--- NOTE | 2019-06-18 12:20 | EDM.PDOC ---
ED HPI GENERAL MEDICAL PROBLEM - General Chief Complaint: Neck Problem Stated Complaint: SEVERE HEAD/NECK PAIN Time Seen by Provider: 06/18/19 11:43 Source of Information: Reports: Patient History Limitations: Reports: No Limitations - History of Present Illness INITIAL COMMENTS - FREE TEXT/NARRATIVE: Patient is a 58-year-old female who presents with complaints of right-sided neck pain radiating up into her right face and lateral head. Patient states the pain began yesterday with pain to her right anterior neck that worsened when bending over. Patient states when she woke this morning, the pain is traveling up into her face and she feels that the right side of her face is swollen. Patient states that it is uncomfortable to swallow. The pain radiates into her right lateral neck and into the right trapezius muscle. She has been using Tylenol and ibuprofen as needed for pain. Patient feels she may have had a fever, however states that she has taken Tylenol and ibuprofen so frequently that she is unsure. The pain worsens with any movement of her head. Patient does complain of a slight cough and ongoing congestion that has continued as a result of influenza that she had aproximately one month ago. Neck Pain Score (Numeric/FACES): 8 - Related Data Allergies Allergy/AdvReac Type Severity Reaction Status Date / Time Sulfa (Sulfonamide Allergy Hives Verified 04/18/19 14:59 Antibiotics) Home Meds: Home Meds Acetaminophen/HYDROcodone [[place] 325-5 MG] 1 tab PO Q4H PRN #10 tablet 06/18/19 [Rx] Amoxicillin/Potassium Clav [Augmentin 875-125 Tablet] 1 each PO BID 7 Days #13 tablet 06/18/19 [Rx] Past Medical History - Past Health History Medical/Surgical History: Denies Medical/Surgical History Other HEENT History: tooth extraction Gastrointestinal History: Reports: GERD Other Gastrointestinal History: Nausea 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: 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, Musculoskeletal History: Reports: Back Pain, Chronic, Other (See Below) Other Musculoskeletal History: broken pelvis and neck Neurological History: Reports: Concussion, Headaches, Chronic Other Neuro History: "scar on brain" Psychiatric History: Reports: Anxiety, Depression - Past Surgical History HEENT Surgical History: Reports: Oral Surgery GI Surgical History: Reports: Hernia, Abdominal Female Surgical History: Reports: Section, Hysterectomy, Salpingo- Oophorectomy, Tubal Ligation Social & Family History - Family History Family Medical History: Noncontributory - Caffeine Use Caffeine Use: Reports: Coffee - Living Situation & Occupation Living situation: Reports: , with Spouse Occupation: Unemployed ED ROS GENERAL - Review of Systems Review Of Systems: Comprehensive ROS is negative, except as noted in HPI. ED EXAM, UPPER BACK/NECK PAIN - Physical Exam Exam: See Below Exam Limited By: No Limitations General Appearance: Alert, WD/WN, No Apparent Distress Ears Exam: Normal External Exam, Normal Canal, Hearing Grossly Normal, TM Bulging (right), TM Fluid (right). No: TM Dullness, TM Erythema, TM Perforation , TM Vesicles Nose Exam: Normal Inspection, Normal Mucousa, No Blood Throat/Mouth Exam: Normal Inspection, Normal Lips, Normal Teeth, Normal Gums, Normal Oropharynx, Normal Voice, No Airway Compromise Head Exam: Atraumatic, Normocephalic Neck Exam: Full Range of Motion, Normal Inspection, Paraspinous Muscle Tender ( right posterior neck extending into the right trapezius muscle.), Tenderness ( Anterior right neck tenderness along the cervical lymphnode chain. ). 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 DIRECTED Care 06/18/19 12:14 Active Visual Acuity [Vision Test] [RC] ASDIRECTED Care 06/18/19 11:52 Active CULTURE STREP A CONFIRMATION [RM] Stat Lab 06/18/19 12:23 Results Rapid Strep w/culture conf [STREP SCRN A RAPID W CULT Lab 06/18/19 12:23 Results CONF] [RM] Stat Sodium Chloride 0.9% [Saline Flush] Med 06/18/19 12:14 Active 10 ml FLUSH ASDIRECTED PRN Sodium Chloride 0.9% [Saline Flush] Med 06/18/19 12:35 Active 10 ml FLUSH ONETIME PRN Peripheral IV Insertion Adult [OM.PC] Stat Oth 06/18/19 12:14 Ordered Medication Orders Sodium Chloride (Saline Flush) 10 ml FLUSH ASDIRECTED PRN PRN Reason: Keep Vein Open Last Admin: 06/18/19 12:53 Dose: 10 ml Sodium Chloride (Saline Flush) 10 ml FLUSH ONETIME PRN PRN Reason: Keep Vein Open Last Admin: 06/18/19 13:01 Dose: 10 ml Labs: Laboratory Tests 06/18/19 06/18/19 Range/Units 12:50 13:50 WBC 5.53 (3.98-10.04) K/mm3 RBC 4.34 (3.98-5.22) M/mm3 Hgb 13.9 (11.2-15.7) gm/dl Hct 40.5 (34.1-44.9) % MCV 93.3 (79.4-94.8) fl MCH 32.0 (25.6-32.2) pg MCHC 34.3 (32.2-35.5) g/dl RDW Std Deviation 42.4 (36.4-46.3) fL Plt Count 237 (182-369) K/mm3 MPV 9.6 (9.4-12.3) fl Neut % (Auto) 47.7 (34.0-71.1) % Lymph % (Auto) 41.2 (19.3-51.7) % Riley % (Auto) 8.9 (4.7-12.5) % Eos % (Auto) 1.3 (0.7-5.8) Baso % (Auto) 0.7 (0.1-1.2) % Neut # (Auto) 2.64 (1.56-6.13) K/mm3 Lymph # (Auto) 2.28 (1.18-3.74) K/mm3 Riley # (Auto) 0.49 H (0.24-0.36) K/mm3 Eos # (Auto) 0.07 (0.04-0.36) K/mm3 Baso # (Auto) 0.04 (0.01-0.08) K/mm3 Sodium 139 (136-145) mEq/L Potassium 4.3 (3.5-5.1) mEq/L Chloride 104 (98-107) mEq/L Carbon Dioxide 25 (21-32) mEq/L Anion Gap 14.3 (5-15) BUN 15 (7-18) mg/dL Creatinine 0.8 (0.55-1.02) mg/dL Est Cr Clr Drug Dosing 61.36 mL/min Estimated GFR (MDRD) > 60 (>60) mL/min BUN/Creatinine Ratio 18.8 H (14-18) Glucose 91 (74-106) mg/dL Calcium 9.1 (8.5-10.1) mg/dL Total Bilirubin 0.7 (0.2-1.0) mg/dL AST 22 (15-37) U/L ALT 31 (14-59) U/L Alkaline Phosphatase 55 (46-116) U/L C-Reactive Protein < 0.2 (<1.0) mg/dL Total Protein 6.8 (6.4-8.2) g/dl Albumin 3.9 (3.4-5.0) g/dl Globulin 2.9 gm/dL Albumin/Globulin Ratio 1.3 (1-2) Meds: Medications Generic Name Dose Route Start Last Admin Trade Name Freq PRN Reason Stop Dose Admin Sodium Chloride 10 ml 06/18/19 12:14 06/18/19 12:53 Saline Flush FLUSH 10 ml ASDIRECTED PRN Administration Keep Vein Open Sodium Chloride 10 ml 06/18/19 12:35 06/18/19 13:01 Saline Flush FLUSH 10 ml ONETIME PRN Administration Keep Vein Open Discontinued Medications Generic Name Dose Route Start Last Admin Trade Name Freq PRN Reason Stop Dose Admin Amoxicillin/Clavulanate Potassium 1 tab 06/18/19 14:20 06/18/19 14:47 Augmentin 875 Mg/125 Mg PO 06/18/19 14:21 1 tab ONETIME ONE Administration Cyclobenzaprine HCl 10 mg 06/18/19 12:24 06/18/19 12:40 Flexeril PO 06/18/19 12:25 10 mg ONETIME ONE Administration Hydromorphone HCl 0.5 mg 06/18/19 13:22 06/18/19 13:32 Dilaudid IVPUSH 06/18/19 13:23 0.5 mg ONETIME ONE Administration Hydromorphone HCl 0.5 mg 06/18/19 14:09 06/18/19 14:15 Dilaudid IVPUSH 06/18/19 14:10 0.5 mg ONETIME ONE Administration Iopamidol 80 ml 06/18/19 12:35 06/18/19 13:01 Isovue-300 (61%) IVPUSH 06/18/19 12:36 100 ml ONETIME ONE Administration Ketorolac Tromethamine 30 mg 06/18/19 12:14 06/18/19 12:51 Toradol IVPUSH 06/18/19 12:15 30 mg ONETIME ONE Administration - Re-Assessments/Exams Free Text/Narrative Re-Assessment/Exam: 06/18/19 14:31 Hematology was grossly unremarkable. CT of the soft tissue of the neck was negative for any signs of infection or abscess formation. We will treat the patient for bacterial sinusitis based on the findings of significant effusion behind the right TM, as well as worsening symptoms with leaning forward. We will start Augmentin twice daily for 7 days. Also sent a prescription for [place] as needed for pain. Discharge instructions as documented. Departure - Departure Time of Disposition: 14:31 Disposition: Home, Self-Care 01 Condition: Fair Clinical Impression: Acute bacterial sinusitis - Discharge Information *PRESCRIPTION DRUG MONITORING PROGRAM REVIEWED*: Yes *COPY OF PRESCRIPTION DRUG MONITORING REPORT IN PATIENT JO ANN: No Prescriptions: Acetaminophen/HYDROcodone [[place] 325-5 MG] 1 tab PO Q4H PRN #10 tablet PRN Reason: Pain Amoxicillin/Potassium Clav [Augmentin 875-125 Tablet] 1 each PO BID 7 Days #13 tablet Instructions: Sinusitis, Adult, [id number] Referrals: PCP,None [Primary Care Provider] - Forms: ED Department Discharge, ED Return to Work/School Form Additional Instructions: You were seen in the emergency department today for pain to your right neck extending up into your face. Your work-up included blood work as well as a CT of the soft tissues of your neck. Your blood work was found to all be normal. The CT of your neck did not show any signs of abscess formation or infection. As we discussed, it is likely that you are suffering from a bacterial sinusitis based on your symptoms and exam. You have been started on Augmentin. Take this twice daily for 7 days as prescribed. Recommend that she use over-the- counter Tylenol or ibuprofen as needed for pain. For pain not relieved by these medications, a prescription for [place] has been sent to [place] [facility] in [place]. Do not drive or operate heavy machinery after taking this medication as it can be sedating. You should begin to see improvement your symptoms over the next couple days. If you experience any worsening symptoms or fail to improve over the next couple days as expected, I would recommend that you return to the emergency department or follow-up in the clinic with a primary care provider. Sepsis Event Note - Evaluation Sepsis Screening Result: No Definite Risk - Focused Exam Vital Signs: Vital Signs Temp Pulse Resp BP Pulse Ox 06/18/19 11:42 98.9 F 84 16 159/90 H 100 Date Exam was Performed: 06/18/19 Time Exam was Performed: 14:50 - My Orders Last 24 Hours: My Active Orders 06/18/19 11:52 Visual Acuity [Vision Test] [RC] ASDIRECTED 06/18/19 12:14 Peripheral IV Care [RC] . DIRECTED Sodium Chloride 0.9% [Saline Flush] 10 ml FLUSH ASDIRECTED PRN Peripheral IV Insertion Adult [OM.PC] Stat 06/18/19 12:23 CULTURE STREP A CONFIRMATION [RM] Stat Rapid Strep w/culture conf [STREP SCRN A RAPID W CULT CONF] [RM] Stat 06/18/19 12:35 Sodium Chloride 0.9% [Saline Flush] 10 ml FLUSH ONETIME PRN - Assessment/Plan Last 24 Hours: My Active Orders 06/18/19 11:52 Visual Acuity [Vision Test] [RC] ASDIRECTED 06/18/19 12:14 Peripheral IV Care [RC] . DIRECTED Sodium Chloride 0.9% [Saline Flush] 10 ml FLUSH ASDIRECTED PRN Peripheral IV Insertion Adult [OM.PC] Stat 06/18/19 12:23 CULTURE STREP A CONFIRMATION [RM] Stat Rapid Strep w/culture conf [STREP SCRN A RAPID W CULT CONF] [RM] Stat 06/18/19 12:35 Sodium Chloride 0.9% [Saline Flush] 10 ml FLUSH ONETIME PRN
[2019-06-18] MEDS ORDERED: Cyclobenzaprine 10 MG Tab PO ONE (12:24)
[2019-06-18] MEDS ORDERED: Iopamidol 612 MG/ML 100 ML Bottle IVPUSH ONE (12:35)
[2019-06-18] MEDS ORDERED: HYDROmorphone 0.5 MG/0.5 ML Syringe IVPUSH ONE ×2 (13:22→14:09)
--- NOTE | 2019-06-18 13:56 | CT ---
CT neck Technique: Multiple axial sections through the neck were obtained. Reconstructed coronal and sagittal images were obtained. Comparison: No prior CT neck, previous CT paranasal sinus exam of 01/08/17. Findings: Parotid salivary glands are within normal limits. Submandibular salivary glands are within normal limits. Thyroid gland appears within normal limits. No adenopathy is seen within the neck. No discrete neck mass is appreciated. Visualized lung apices are clear. No subcutaneous inflammatory change is seen. Bone window settings were reviewed which show disc space narrowing with anterior and posterior osteophytes at C5-C6 and C6-C7. No acute osseous finding is appreciated. Impression: 1. Degenerative change within the cervical spine. 2. No additional abnormality is appreciated on CT study of the neck. Diagnostic code #2 This report was dictated in MDT
[2019-06-18] MEDS ORDERED: Amoxicillin/Clavulanate K 875-125 MG Tab PO ONE (14:20)
== END 2019-06-18 14:54 | disposition home or self-care (01) ==
LOC: JD.ED 11:32
DX: J01.90 Acute sinusitis, unspecified (principal); B96.89 Other specified bacterial agents as the cause of diseases classified elsewhere; Z88.2 Allergy status to sulfonamides
CPT/HCPCS: 36415; 70491; 80053; 85025; 86140; 87081; 87430; 96374; 96375; 96376; 99284; A9270; J1170; J1885; Q9967; 99283

== ENCOUNTER 2019-06-23 09:16 | Emergency (ER) | payer OTHER ==
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
== END 2019-06-23 10:15 | disposition home or self-care (01) ==
LOC: JD.ED 09:16
CPT/HCPCS: 99283

== ENCOUNTER 2019-07-09 18:49 | Emergency (ER) | payer OTHER ==
[2019-07-09 19:13] VITALS: BP 145/82; PULSE 63
[2019-07-09] MEDS ORDERED: Ketorolac 60 MG/2 ML SDV IM ONE (19:17)
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
--- NOTE | 2019-07-09 20:02 | CT ---
CT maxillofacial Technique: Multiple axial sections were obtained through the maxilla facial structures. Intravenous contrast was not utilized. Findings: Old healed fracture is noted within the medial left orbit. Paranasal sinuses show nothing acute. No acute fracture is appreciated. 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 Mild nasal septal deviation is seen. Impression: 1. Findings as noted above. 2. Nothing acute is appreciated on CT study of the maxillofacial structures. Diagnostic code #2 Study was dictated in MDT
== END 2019-07-09 20:34 | disposition home or self-care (01) ==
LOC: JD.ED 18:49
DX: R51 Headache (principal); F17.210 Nicotine dependence, cigarettes, uncomplicated
CPT/HCPCS: 70486; 96372; 99283; J1885

== ENCOUNTER 2020-01-11 09:34 | Emergency (ER) | payer OTHER ==
[2020-01-11] MEDS ORDERED: Ondansetron 4 MG/2 ML SDV IVPUSH ONE (10:13)
[2020-01-11] MEDS ORDERED: Sodium Chloride 0.9% 10 ML Syringe FLUSH PRN (10:13)
[2020-01-11] MEDS ORDERED: Sodium Chloride 0.9% 1,000 ML IV SCH (10:15)
--- NOTE | 2020-01-11 10:46 | EDM.PDOC ---
ED HPI GENERAL MEDICAL PROBLEM - General Chief Complaint: Respiratory Problem Stated Complaint: CHEST CONGESTION AND VOMITING Time Seen by Provider: 01/11/20 09:57 Source of Information: Reports: Patient History Limitations: Reports: No Limitations - History of Present Illness INITIAL COMMENTS - FREE TEXT/NARRATIVE: The patient presents with a cough, shortness of breath and chest tightness. This has been going on since yesterday. She also had nausea and vomited once. She also is dizzy. She works at [employer] and she has been exposed to multiple people with COVID 19. She got tested this morning [place] a drive up station. She has no fever at this time. She does have a dry cough. She smokes. She has no history of heart problems. She has no history of hypertension, hyperch olesterolemia, or diabetes. She was sent over from the clinic. She also has a headache. Onset: Gradual Duration: Day(s): (2) Location: Reports: Chest Quality: Reports: Other (tightness) Severity: Mild Improves with: Reports: None Worsens with: Reports: None Associated Symptoms: Reports: Chest Pain, Cough, Nausea/Vomiting, Shortness of Breath. Denies: Fever/Chills, Headaches Chest Pain Score (Numeric/FACES): 4 - Related Data Allergies Allergy/AdvReac Type Severity Reaction Status Date / Time Sulfa (Sulfonamide Allergy Hives Verified 01/11/20 09:54 Antibiotics) Home Meds: Home Meds LORazepam [Ativan] 0.5 mg PO ASDIRECTED 01/11/20 [History] Past Medical History - Past Health History Medical/Surgical History: Denies Medical/Surgical History HEENT History: Reports: Impaired Vision, Other (See Below) Other HEENT History: "Submandibular Stone," tooth extraction Cardiovascular History: Reports: None Respiratory History: Reports: None Gastrointestinal History: Reports: GERD Other Gastrointestinal History: Nausea 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: 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, Musculoskeletal History: Reports: Back Pain, Chronic, Other (See Below) Other Musculoskeletal History: broken pelvis and neck Neurological History: Reports: Concussion, Headaches, Chronic Other Neuro History: "scar on brain" Psychiatric History: Reports: Anxiety, Depression Endocrine/Metabolic History: Reports: None Hematologic History: Reports: None Immunologic History: Reports: None Oncologic (Cancer) History: Reports: None Dermatologic History: Reports: None - Infectious Disease History Infectious Disease History: Reports: Chicken Pox, Influenza, Measles, Mumps, Shingles - Past Surgical History HEENT Surgical History: Reports: Oral Surgery GI Surgical History: Reports: Hernia, Abdominal Female Surgical History: Reports: Section, Hysterectomy, Salpingo- Oophorectomy, Tubal Ligation Social & Family History - Family History Family Medical History: Noncontributory - Tobacco Use Smoking Status *Q: Current Every Day Smoker Years of Tobacco use: 20 Packs/Tins Daily: 0.5 - Caffeine Use Caffeine Use: Reports: Coffee, Energy Drinks - Recreational Drug Use Recreational Drug Use: No - Living Situation & Occupation Living situation: Reports: , with Spouse Occupation: Unemployed ED ROS GENERAL - Review of Systems Review Of Systems: See Below Constitutional: Reports: No Symptoms HEENT: Reports: No Symptoms Respiratory: Reports: Shortness of Breath, Cough Cardiovascular: Reports: Chest Pain Endocrine: Reports: No Symptoms GI/Abdominal: Reports: Nausea, Vomiting. Denies: Abdominal Pain, Diarrhea : Reports: No Symptoms Musculoskeletal: Reports: No Symptoms ED EXAM, GENERAL - Physical Exam Exam: See Below Exam Limited By: No Limitations General Appearance: Alert, No Apparent Distress Ears: Normal External Exam Nose: Normal Inspection Head: Atraumatic, Normocephalic Neck: Normal Inspection, Supple, Non-Tender Respiratory/Chest: No Respiratory Distress, Lungs Clear, Normal Breath Sounds Cardiovascular: Regular Rate, Rhythm, No Edema, No Murmur GI/Abdominal: Soft, Non-Tender, No Organomegaly, No Mass Back Exam: Normal Inspection Extremities: Normal Inspection EKG INTERPRETATION EKG Date: 01/11/20 Time: 10:18 Rhythm: NSR Rate (Beats/Min): 65 [place]: Normal P-Wave: Present QRS: Normal ST-T: Normal QT: Normal Course - Vital Signs Last Recorded V/S: Last Vital Signs Temp 97.2 F 01/11/20 09:55 Pulse 69 01/11/20 09:55 Resp 12 01/11/20 09:55 BP 156/82 H 01/11/20 09:55 Pulse Ox 100 01/11/20 09:55 - Orders/Labs/Meds Orders: Active Orders 24 hr Category Date Time Status Cardiac Monitoring [RC] . DIRECTED Care 01/11/20 10:13 Active EKG Documentation Completion [RC] STAT Care 01/11/20 10:13 Active Peripheral IV Care [RC] . DIRECTED Care 01/11/20 10:13 Active Chest 1V Frontal [CR] Stat Exams 01/11/20 10:13 Taken Sodium Chloride 0.9% [Normal Saline] 1,000 ml Med 01/11/20 10:15 Active IV .BOLUS Sodium Chloride 0.9% [Saline Flush] Med 01/11/20 10:13 Active 10 ml FLUSH ASDIRECTED PRN ED Antiemetic Medication Reflex [OM.PC] Stat Oth 01/11/20 10:13 Ordered Peripheral IV Insertion Adult [OM.PC] Stat Oth 01/11/20 10:13 Ordered Medication Orders Sodium Chloride (Normal Saline) 1,000 mls @ 1,000 mls/hr IV .BOLUS CHRIS Last Admin: 01/11/20 10:27 Dose: 1,000 mls/hr Documented by: SABINO Sodium Chloride (Saline Flush) 10 ml FLUSH ASDIRECTED PRN PRN Reason: Keep Vein Open Last Admin: 01/11/20 10:28 Dose: 10 ml Documented by: SABINO Labs: Laboratory Tests 01/11/20 01/11/20 Range/Units 10:10 10:10 WBC 6.77 (3.98-10.04) K/mm3 RBC 4.31 (3.98-5.22) M/mm3 Hgb 13.8 (11.2-15.7) gm/dl Hct 40.5 (34.1-44.9) % MCV 94.0 (79.4-94.8) fl MCH 32.0 (25.6-32.2) pg MCHC 34.1 (32.2-35.5) g/dl RDW Std Deviation 42.8 (36.4-46.3) fL Plt Count 221 (182-369) K/mm3 MPV 8.8 L (9.4-12.3) fl Neut % (Auto) 60.4 (34.0-71.1) % Lymph % (Auto) 31.0 (19.3-51.7) % [place] % (Auto) 7.2 (4.7-12.5) % Eos % (Auto) 0.7 (0.7-5.8) Baso % (Auto) 0.6 (0.1-1.2) % Neut # (Auto) 4.08 (1.56-6.13) K/mm3 Lymph # (Auto) 2.10 (1.18-3.74) K/mm3 [place] # (Auto) 0.49 H (0.24-0.36) K/mm3 Eos # (Auto) 0.05 (0.04-0.36) K/mm3 Baso # (Auto) 0.04 (0.01-0.08) K/mm3 Manual Slide Review Normal smear Sodium 139 (136-145) mEq/L Potassium 4.1 (3.5-5.1) mEq/L Chloride 103 (98-107) mEq/L Carbon Dioxide 27 (21-32) mEq/L Anion Gap 13.1 (5-15) BUN 14 (7-18) mg/dL Creatinine 0.8 (0.55-1.02) mg/dL Est Cr Clr Drug Dosing 60.62 mL/min Estimated GFR (MDRD) > 60 (>60) mL/min BUN/Creatinine Ratio 17.5 (14-18) Glucose 94 (74-106) mg/dL Calcium 9.7 (8.5-10.1) mg/dL Total Bilirubin 0.8 (0.2-1.0) mg/dL AST 26 (15-37) U/L ALT 41 (14-59) U/L Alkaline Phosphatase 56 (46-116) U/L Troponin I < 0.017 (0.00-0.056) ng/mL Total Protein 7.5 (6.4-8.2) g/dl Albumin 4.1 (3.4-5.0) g/dl Globulin 3.4 gm/dL Albumin/Globulin Ratio 1.2 (1-2) Meds: Medications Generic Name Dose Route Start Last Admin Trade Name Freq PRN Reason Stop Dose Admin Sodium Chloride 1,000 mls @ 1,000 mls/hr 01/11/20 10:15 01/11/20 10:27 Normal Saline IV 1,000 mls/hr .BOLUS CHRIS Administration Sodium Chloride 10 ml 01/11/20 10:13 01/11/20 10:28 Saline Flush FLUSH 10 ml ASDIRECTED PRN Administration Keep Vein Open Discontinued Medications Generic Name Dose Route Start Last Admin Trade Name Freq PRN Reason Stop Dose Admin Ondansetron HCl 4 mg 01/11/20 10:13 01/11/20 10:28 Zofran IVPUSH 01/11/20 10:14 4 mg ONETIME ONE Administration - Re-Assessments/Exams Free Text/Narrative Re-Assessment/Exam: 01/11/20 10:45 I ordered an IV NS 1L bolus, zofran 4mg IV, labs, EKG and CXR. 01/11/20 11:11 Her EKG shows a NSR with no acute changes. Her CXR looks good. Her CBC and CMP look good. Her troponin is negative. Her symptoms are suspicious for COVID 19. She has been tested. I will have her quarantine until she knows the results. Departure - Departure Time of Disposition: 11:15 Disposition: Home, Self-Care 01 Condition: Good Clinical Impression: Atypical chest pain, Viral URI - Discharge Information Referrals: Mony Charles MD [Primary Care Provider] - Forms: ED Department Discharge Additional Instructions: Quarantine until you know the results of the COVID 19 test. Drink plenty of fluids. Take motrin or tylenol as needed for pain or fever. Please return if you are worse. Sepsis Event Note (ED) - Evaluation Sepsis Screening Result: No Definite Risk - Focused Exam Vital Signs: Vital Signs Temp Pulse Resp BP Pulse Ox 01/11/20 09:55 97.2 F 69 12 156/82 H 100 - My Orders Last 24 Hours: My Active Orders 01/11/20 10:13 Cardiac Monitoring [RC] . DIRECTED EKG Documentation Completion [RC] STAT Peripheral IV Care [RC] . DIRECTED Chest 1V Frontal [CR] Stat Sodium Chloride 0.9% [Saline Flush] 10 ml FLUSH ASDIRECTED PRN ED Antiemetic Medication Reflex [OM.PC] Stat Peripheral IV Insertion Adult [OM.PC] Stat 01/11/20 10:15 Sodium Chloride 0.9% [Normal Saline] 1,000 ml IV .BOLUS - Assessment/Plan Last 24 Hours: My Active Orders 01/11/20 10:13 Cardiac Monitoring [RC] . DIRECTED EKG Documentation Completion [RC] STAT Peripheral IV Care [RC] . DIRECTED Chest 1V Frontal [CR] Stat Sodium Chloride 0.9% [Saline Flush] 10 ml FLUSH ASDIRECTED PRN ED Antiemetic Medication Reflex [OM.PC] Stat Peripheral IV Insertion Adult [OM.PC] Stat 01/11/20 10:15 Sodium Chloride 0.9% [Normal Saline] 1,000 ml IV .BOLUS
[2020-01-11 11:29] VITALS: BP 135/70; PULSE 70
--- NOTE | 2020-02-07 12:06 | CR ---
PROCEDURE INFORMATION: Exam: XR Chest, 1 View Exam date and time: 01/11/2020 10:01 AM Age: 59 years old Clinical indication: Chest pain; Patient HX: Covid precautions TECHNIQUE: Imaging protocol: XR of the chest Views: 1 view. COMPARISON: DX Chest 2V 04/18/2019 3:39 PM FINDINGS: Lungs: Unremarkable. No consolidation. Pleural space: Unremarkable. No pleural effusion. No pneumothorax. Heart/Mediastinum: Unremarkable. No cardiomegaly. Bones/joints: No acute findings. IMPRESSION: No acute findings. Thank you for allowing us to participate in the care of your patient. Dictated and Authenticated by: Luis Enrique Minor MD 02/07/2020 12:44 PM Central Time ([place] & [place]) AYAAN
== END 2020-01-11 11:36 | disposition home or self-care (01) ==
LOC: JD.ED 09:34
DX: R07.89 Other chest pain (principal); J06.9 Acute upper respiratory infection, unspecified; F17.210 Nicotine dependence, cigarettes, uncomplicated; Z88.2 Allergy status to sulfonamides; Z90.710 Acquired absence of both cervix and uterus; Z20.828 Contact with and (suspected) exposure to other viral communicable diseases
CPT/HCPCS: 36415; 71045; 80053; 84484; 85025; 93005; 96361; 96374; 99285; J2405; J7030; 93010; 99284

== ENCOUNTER 2020-05-26 06:54 | Emergency (ER) | payer OTHER ==
[2020-05-26 07:05] VITALS: BP 148/85; PULSE 80
--- NOTE | 2020-05-26 07:12 | EDM.PDOC ---
ED HPI GENERAL MEDICAL PROBLEM - General Chief Complaint: Headache Stated Complaint: HEADACHE AND NASAL CONGESTION Time Seen by Provider: 05/26/20 07:06 Source of Information: Reports: Patient History Limitations: Reports: No Limitations - History of Present Illness INITIAL COMMENTS - FREE TEXT/NARRATIVE: 59-year-old female presents to the ED with diffuse congestion in her sinuses. She states developed sinus congestion on Friday, May 22 and is progressing intensity to be a constant throbbing pressure pain particularly maxillary sinuses with pressure up underneath and behind her eyes as well as in the mid forehead. Pain is constant and throbbing. Blowing out green nasal secretions with postnasal drip causing some degree of cough. Throat is sore muffled feeling in both ears. She states she gets sinus infection about once every year or so. Last bout was about 18 months ago. She tried to go to work this morning but could not function in the workplace and therefore came to the ED. Onset: Gradual Onset Date: 05/22/20 Duration: Day(s):, Constant, Getting Worse Location: Reports: Face Quality: Reports: Ache (Severe nasal congestion with pressure in maxillary sinus with ethmoid and sphenoid sinuses.), Pressure, Other (Throbbing.) Severity: Moderate (8 out of 10) Improves with: Reports: None Worsens with: Reports: Other Context: Denies: Activity (Bending forwards makes the pain much worse.), Exercise, Lifting, Sick Contact, Trauma, Other Associated Symptoms: Reports: Cough (Occasionally bringing up some greenish sputum.), cough w sputum, Headaches (Shoulder pain), Loss of Appetite ( from sinus infection), Malaise. 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.) Headache Pain Score (Numeric/FACES): 10 - Related Data Allergies Allergy/AdvReac Type Severity Reaction Status Date / Time Sulfa (Sulfonamide Allergy Hives Verified 05/26/20 07:05 Antibiotics) Home Meds: Home Meds Cefdinir [Omnicef] 300 mg PO BID #20 cap 05/26/20 [Rx] Loratadine/Pseudoephedrine [Claritin-D 24 Hour Tablet] 1 each PO DAILY #5 tab.er.24h 05/26/20 [Rx] oxyCODONE HCl/Acetaminophen [Percocet 5-325 mg Tablet] 1 - 2 each PO Q4H PRN #10 tablet 05/26/20 [Rx] Past Medical History - Past Health History Medical/Surgical History: Denies Medical/Surgical History HEENT History: Reports: Impaired Vision, Other (See Below) Other HEENT History: "Submandibular Stone," tooth extraction Cardiovascular History: Reports: None Respiratory History: Reports: None Gastrointestinal History: Reports: GERD Other Gastrointestinal History: Nausea 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, Musculoskeletal History: Reports: Back Pain, Chronic, Other (See Below) Other Musculoskeletal History: broken pelvis and neck Neurological History: Reports: Concussion, Headaches, Chronic Other Neuro History: "scar on brain" Psychiatric History: Reports: Anxiety, Depression Endocrine/Metabolic History: Reports: None Hematologic History: Reports: None Immunologic History: Reports: None Oncologic (Cancer) History: Reports: None Dermatologic History: Reports: None - Infectious Disease History Infectious Disease History: Reports: Chicken Pox, Influenza, Measles, Mumps, Shingles - Past Surgical History HEENT Surgical History: Reports: Oral Surgery GI Surgical History: Reports: Hernia, Abdominal Female Surgical History: Reports: Section, Hysterectomy, Salpingo- Oophorectomy, Tubal Ligation Social & Family History - Family History Family Medical History: No Pertinent Family History - Caffeine Use Caffeine Use: Reports: Coffee, Energy Drinks - Living Situation & Occupation Living situation: Reports: , with Spouse Occupation: Unemployed ED ROS GENERAL - Review of Systems Review Of Systems: See Below Constitutional: Reports: Fever, Malaise, Weakness, Fatigue, Decreased Appetite HEENT: Reports: Ear Pain (Hearing is muffled. Mild pressure in her ears.), Hearing Loss, Sinus Problem ( Postnasal drip dark green nasal secretions), Other (Hearing is muffled.) Respiratory: Reports: Cough (Postnasal drip causing some degree of cough.). Denies: Shortness of Breath Cardiovascular: Reports: No Symptoms Endocrine: Reports: Fatigue (Poor sleep last evening.) GI/Abdominal: Reports: No Symptoms : Reports: No Symptoms Musculoskeletal: Reports: Back Pain Skin: Reports: No Symptoms (Occasional low back pain) Neurological: Reports: No Symptoms Psychiatric: Reports: No Symptoms Hematologic/Lymphatic: Reports: No Symptoms Immunologic: Reports: No Symptoms - Physical Exam Exam: See Below Exam Limited By: No Limitations General Appearance: Alert, WD/WN, No Apparent Distress, Other (Temperature is 36.2 degrees heart rate 80 and sinus respiratory 16 with pulse ox 100% room air BP 148/85) Eye Exam: Bilateral Eye: Normal Inspection (No scleral icterus or blepharal pallor.), PERRL Ears: Other (Mild right sided CLARK.) Nose: Nasal Swelling (Middle and superior turbinates are enlarged and swollen bilaterally.), Nasal Drainage (Dark green nasal drainage.) Throat/Mouth: Normal Lips, Normal Teeth, Normal Gums, Other (Diffuse oropharyngeal erythema without exudate.) Head Exam: Atraumatic, Normocephalic Neck: Normal Inspection, Supple, Non-Tender, Full Range of Motion. No: Lymphadenopathy (L), Lymphadenopathy (R) Respiratory/Chest: No Respiratory Distress, Lungs Clear, Normal Breath Sounds, No Accessory Muscle Use Cardiovascular: Normal Peripheral Pulses, Regular Rate, Rhythm, No Edema, No Gallop, No Murmur, No Rub Neuro Exam (Abbreviated): Alert, Oriented, CN II-XII Intact, Normal Cognition Extremities: Normal Inspection, Normal Range of Motion, Non-Tender, No Pedal Edema Psychiatric: Normal Affect, Normal Mood Skin Exam: Warm, Dry, Intact, Normal Color, No Rash Course - Vital Signs Last Recorded V/S: Last Vital Signs Temp 36.2 C 05/26/20 07:02 Pulse 80 05/26/20 07:02 Resp 16 05/26/20 07:02 BP 148/85 H 05/26/20 07:02 Pulse Ox 100 05/26/20 07:02 - Radiology Interpretation Free Text/Narrative:: 59-year-old female presents to the ED due to increased pressure in her mid facial structures. She feels she caught a cold which ended up in her sinuses causing significant sinus pressure discomfort in her head neck and face. Discharge from the nose is dark green in color. Pressure in the maxillary sinuses with referred pain up underneath her eyes. Mid forehead pain from ethmoid sphenoid sinus infection. Associated postnasal drip causing some degree of cough. Plan she will be treated with Omnicef 300 mg twice daily for the next 10 days. Claritin-D 24-hour relief 1 tablet every morning for the next 5 days. She requested analgesia as she is in significant discomfort at this time. Provided Percocet tabs 5 to 25 mg strength 1 or 2 every 4-6 hours necessary for pain relief x10 tablets Departure - Departure Time of Disposition: 07:12 Disposition: Home, Self-Care 01 Condition: Fair Clinical Impression: Sinusitis Qualifiers: Sinusitis location: unspecified location Chronicity: acute Recurrence: recurrent Qualified Code(s): J01.91 - Acute recurrent sinusitis, unspecified - Discharge Information *PRESCRIPTION DRUG MONITORING PROGRAM REVIEWED*: Not Applicable *COPY OF PRESCRIPTION DRUG MONITORING REPORT IN PATIENT JO ANN: Not Applicable Prescriptions: Loratadine/Pseudoephedrine [Claritin-D 24 Hour Tablet] 1 each PO DAILY #5 tab.er.24h Cefdinir [Omnicef] 300 mg PO BID #20 cap oxyCODONE HCl/Acetaminophen [Percocet 5-325 mg Tablet] 1 - 2 each PO Q4H PRN #10 tablet PRN Reason: pain relief. Instructions: Sinusitis, Adult Referrals: Mony Charles MD [Primary Care Provider] - Forms: ED Department Discharge, ED Return to Work/School Form Additional Instructions: Evaluation in the emergency room today in regards to acute sinus infection involving maxillary ethmoid and sphenoid sinuses. Treatment to be Claritin-D tablet 1 every morning for the next 5 days to provide nasal congestion and pain relief. Antibiotic is to be Omnicef 300 mg twice daily for the next 10 days to clear up sinus infection. Note given to excuse her from the workplace today. Use Percocet tabs 5/325 mg strength 1 or 2 every 6 hours as necessary to relieve pain Sepsis Event Note (ED) - Evaluation Sepsis Screening Result: No Definite Risk - Focused Exam Vital Signs: Vital Signs Temp Pulse Resp BP Pulse Ox 05/26/20 07:02 36.2 C 80 16 148/85 H 100
== END 2020-05-26 07:28 | disposition home or self-care (01) ==
LOC: JD.ED 06:54
DX: J01.91 Acute recurrent sinusitis, unspecified (principal); Z88.2 Allergy status to sulfonamides
CPT/HCPCS: 99283

== ENCOUNTER 2021-03-03 08:26 | Emergency (ER) | payer OTHER ==
[2021-03-03 08:59] VITALS: BP 146/84; PULSE 70
[2021-03-03] MEDS ORDERED: Ondansetron 4 MG/2 ML SDV IVPUSH ONE (09:15)
[2021-03-03] MEDS ORDERED: Sodium Chloride 0.9% 10 ML Syringe FLUSH PRN (09:15)
[2021-03-03] MEDS ORDERED: Sodium Chloride 0.9% 1,000 ML IV STA (09:15)
[2021-03-03] MEDS ORDERED: Ketorolac 30 MG/ML SDV IVPUSH ONE (09:16)
[2021-03-03] MEDS ORDERED: HYDROmorphone 0.5 MG/0.5 ML Syringe IVPUSH ONE (09:17)
[2021-03-03] MEDS ORDERED: cefTRIAXone 1 GM in Sodium Chloride 0.9% 100 ML IV ONE (12:04)
[2021-03-03] MEDS ORDERED: HYDROmorphone 1 MG/ML Syringe IVPUSH ONE (12:05)
--- NOTE | 2021-03-03 12:15 | EDM.PDOC ---
ED HPI GENERAL MEDICAL PROBLEM - General Chief Complaint: Genitourinary Problem Stated Complaint: POSS KIDNEY STONE Time Seen by Provider: 03/03/21 09:04 Source of Information: Reports: Patient History Limitations: Reports: No Limitations - History of Present Illness INITIAL COMMENTS - FREE TEXT/NARRATIVE: The patient presents with dysuria, back pain and abdominal pain. This stared about a week ago and it is constant now. She has no fever or chills. She has some nausea. She has never had a UTI before. She has no chest pain or shortness of breath. She has no history of kidney stones. Onset: Gradual Duration: Week(s): (1) Location: Reports: Abdomen, Back Quality: Reports: Sharp Severity: Severe Improves with: Reports: None Worsens with: Reports: None Associated Symptoms: Reports: Nausea/Vomiting. Denies: Chest Pain, Cough, Fever/Chills, Headaches, Shortness of Breath Back Pain Score (Numeric/FACES): 6 - Related Data Allergies Allergy/AdvReac Type Severity Reaction Status Date / Time Sulfa (Sulfonamide Allergy Hives Verified 03/03/21 08:58 Antibiotics) Home Meds: Home Meds Hydrocodone/Acetaminophen [Hydrocodone-Acetamin 5-325 mg] 1 - 2 each PO Q6H PRN #10 tablet 03/03/21 [Rx] cephALEXin [Keflex] 500 mg PO BID #10 cap 03/03/21 [Rx] Past Medical History - Past Health History Medical/Surgical History: Denies Medical/Surgical History HEENT History: Reports: Impaired Vision, Other (See Below) Other HEENT History: "Submandibular Stone," tooth extraction Cardiovascular History: Reports: None Respiratory History: Reports: None Gastrointestinal History: Reports: GERD Other Gastrointestinal History: Nausea [employer] History: Reports: 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, Musculoskeletal History: Reports: Back Pain, Chronic, Other (See Below) Other Musculoskeletal History: broken pelvis and neck Neurological History: Reports: Concussion, Headaches, Chronic Other Neuro History: "scar on brain" Psychiatric History: Reports: Anxiety, Depression Endocrine/Metabolic History: Reports: None Hematologic History: Reports: None Immunologic History: Reports: None Oncologic (Cancer) History: Reports: None Dermatologic History: Reports: None - Infectious Disease History Infectious Disease History: Reports: Chicken Pox, Influenza, Measles, Mumps, Shingles - Past Surgical History GI Surgical History: Reports: Hernia, Abdominal Female Surgical History: Reports: Section, Hysterectomy, Salpingo- Oophorectomy, Tubal Ligation Neurological Surgical History: Reports: C-Spine Other Neurological Surgeries/Procedures: Patient had Halo placed x 3 months 1996 Musculoskeletal Surgical History: Reports: ORIF Other Musculoskeletal Surgeries/Procedures:: Surgery to left arm from compound fracture. Social & Family History - Family History Family Medical History: No Pertinent Family History - Tobacco Use Tobacco Use Status *Q: Current Every Day Tobacco User Years of Tobacco use: 20 Packs/Tins Daily: 0.5 Used Tobacco, but Quit: No - Caffeine Use Caffeine Use: Reports: Coffee, Soda - Recreational Drug Use Recreational Drug Use: No - Living Situation & Occupation Living situation: Reports: , with Spouse Occupation: Unemployed ED ROS GENERAL - Review of Systems Review Of Systems: See Below Constitutional: Reports: No Symptoms HEENT: Reports: No Symptoms Respiratory: Reports: No Symptoms Cardiovascular: Reports: No Symptoms Endocrine: Reports: No Symptoms GI/Abdominal: Reports: Abdominal Pain, Nausea. Denies: Diarrhea, Vomiting : Reports: Dysuria, Flank Pain Musculoskeletal: Reports: No Symptoms Skin: Reports: No Symptoms ED EXAM, GI/ABD - Physical Exam Exam: See Below Exam Limited By: No Limitations General Appearance: Alert, No Apparent Distress Ears: Normal External Exam Nose: Normal Inspection Head: Atraumatic, Normocephalic Neck: Normal Inspection Respiratory/Chest: No Respiratory Distress, Lungs Clear, Normal Breath Sounds Cardiovascular: Regular Rate, Rhythm, No Edema, No Murmur GI/Abdominal Exam: Soft, No Organomegaly, No Mass, Tender (Moderate pain to the suprapubic area) Back Exam: CVA Tenderness (L), CVA Tenderness (R) Extremities: Normal Inspection Course - Vital Signs Last Recorded V/S: Last Vital Signs Temp 96.6 F L 03/03/21 08:54 Pulse 70 03/03/21 08:54 Resp 12 03/03/21 08:54 BP 146/84 H 03/03/21 08:54 Pulse Ox 100 03/03/21 08:54 - Orders/Labs/Meds Orders: Active Orders 24 hr Category Date Time Status Peripheral IV Care [RC] . DIRECTED Care 03/03/21 09:15 Active Abdomen Pelvis wo Cont [CT] Stat Exams 03/03/21 09:15 Taken Sodium Chloride 0.9% [Saline Flush] Med 03/03/21 09:15 Active 10 ml FLUSH ASDIRECTED PRN ED Antiemetic Medication Reflex [OM.PC] Stat Oth 03/03/21 09:15 Ordered Peripheral IV Insertion Adult [OM.PC] Stat Ot 03/03/21 09:15 Ordered Medication Orders Sodium Chloride (Sodium Chloride 0.9% 10 Ml Syringe) 10 ml FLUSH ASDIRECTED PRN PRN Reason: Keep Vein Open Last Admin: 03/03/21 10:12 Dose: 10 ml Documented by: GOLDY Labs: Laboratory Tests 03/03/21 03/03/21 03/03/21 Range/Units 09:30 09:58 09:58 WBC 5.23 (3.98-10.04) K/mm3 RBC 3.94 L (3.98-5.22) M/mm3 Hgb 12.6 (11.2-15.7) gm/dl Hct 37.4 (34.1-44.9) % MCV 94.9 H (79.4-94.8) fl MCH 32.0 (25.6-32.2) pg MCHC 33.7 (32.2-35.5) g/dl RDW Std Deviation 42.9 (36.4-46.3) fL Plt Count 219 (182-369) K/mm3 MPV 8.8 L (9.4-12.3) fl Neut % (Auto) 48.5 (34.0-71.1) % Lymph % (Auto) 42.1 (19.3-51.7) % [place] % (Auto) 7.6 (4.7-12.5) % Eos % (Auto) 1.0 (0.7-5.8) Baso % (Auto) 0.8 (0.1-1.2) % Neut # (Auto) 2.54 (1.56-6.13) K/mm3 Lymph # (Auto) 2.20 (1.18-3.74) K/mm3 [place] # (Auto) 0.40 H (0.24-0.36) K/mm3 Eos # (Auto) 0.05 (0.04-0.36) K/mm3 Baso # (Auto) 0.04 (0.01-0.08) K/mm3 Sodium 140 (136-145) mEq/L Potassium 4.4 (3.5-5.1) mEq/L Chloride 104 (98-107) mEq/L Carbon Dioxide 29 (21-32) mEq/L Anion Gap 11.4 (5-15) BUN 10 (7-18) mg/dL Creatinine 0.8 (0.55-1.02) mg/dL Est Cr Clr Drug Dosing 57.14 mL/min Estimated GFR (MDRD) > 60 (>60) mL/min BUN/Creatinine Ratio 12.5 L (14-18) Glucose 91 (70-99) mg/dL Calcium 9.0 (8.5-10.1) mg/dL Total Bilirubin 0.7 (0.2-1.0) mg/dL AST 22 (15-37) U/L ALT 36 (14-59) U/L Alkaline Phosphatase 51 (46-116) U/L Total Protein 6.7 (6.4-8.2) g/dl Albumin 3.9 (3.4-5.0) g/dl Globulin 2.8 gm/dL Albumin/Globulin Ratio 1.4 (1-2) Lipase 114 (73-393) U/L Urine Color Yellow (Yellow) Urine Appearance Clear (Clear) Urine pH 6.0 (5.0-8.0) Ur Specific [place] 1.020 (1.005-1.030) Urine Protein Negative (Negative) Urine Glucose (UA) Negative (Negative) Urine Ketones Negative (Negative) Urine Occult Blood Negative (Negative) Urine Nitrite Negative (Negative) Urine Bilirubin Negative (Negative) Urine Urobilinogen 0.2 (0.2-1.0) Ur Leukocyte Esterase 1+ H (Negative) Urine RBC 0-5 (0-5) /hpf Urine WBC 20-30 H (0-5) /hpf Ur Squamous Epith Cells 0-5 (0-5) /hpf Urine Bacteria Many H (FEW) /hpf Urine Mucus Few (FEW) /hpf Meds: Medications Generic Name Dose Route Start Last Admin Trade Name Freq PRN Reason Stop Dose Admin Sodium Chloride 10 ml 03/03/21 09:15 03/03/21 10:12 Sodium Chloride 0.9% 10 Ml Syringe FLUSH 10 ml ASDIRECTED PRN Administration Keep Vein Open Discontinued Medications Generic Name Dose Route Start Last Admin Trade Name Freq PRN Reason Stop Dose Admin Hydromorphone HCl 0.5 mg 03/03/21 09:17 03/03/21 10:08 Hydromorphone 0.5 Mg/0.5 Ml Syringe IVPUSH 03/03/21 09:18 0.5 mg ONETIME ONE Administration Hydromorphone HCl 1 mg 03/03/21 12:05 Hydromorphone 1 Mg/Ml Syringe IVPUSH 03/03/21 12:06 ONETIME ONE Sodium Chloride 1,000 mls @ 1,000 mls/hr 03/03/21 09:15 03/03/21 10:08 Normal Saline IV 03/03/21 10:14 1,000 mls/hr .BOLUS STA Administration Ceftriaxone Sodium 1 gm/ 100 mls @ 200 mls/hr 03/03/21 12:04 Sodium Chloride IV 03/03/21 12:33 ONETIME ONE Ketorolac Tromethamine 30 mg 03/03/21 09:16 03/03/21 10:07 Ketorolac 30 Mg/Ml Sdv IVPUSH 03/03/21 09:17 30 mg ONETIME ONE Administration Ondansetron HCl 4 mg 03/03/21 09:15 03/03/21 10:08 Ondansetron 4 Mg/2 Ml Sdv IVPUSH 03/03/21 09:16 4 mg ONETIME ONE Administration - Re-Assessments/Exams Free Text/Narrative Re-Assessment/Exam: 03/03/21 12:12 I ordered an IV NS 1L bolus, zofran 4mg IV, toradol 30mg IV, dilaudid 0.5mg IV, labs, UA and a CT of her abdomen and pelvis without contrast to rule out a kidney stone. Her CBC and CMP look good. Her lipase is normal. Her UA shows a UTI. Her CT shows no acute intra-abdominal or pelvic findings. She has a UTI. She still has pain. I have ordered dilaudid 1mg IV for he pain and rocephin 1 gram IV. I will get her on keflex and something for the pain. Departure - Departure Time of Disposition: 12:20 Disposition: Home, Self-Care 01 Condition: Good Clinical Impression: UTI, Urinary tract infectious disease - Discharge Information *PRESCRIPTION DRUG MONITORING PROGRAM REVIEWED*: Not Applicable *COPY OF PRESCRIPTION DRUG MONITORING REPORT IN PATIENT JO ANN: Not Applicable Prescriptions: Hydrocodone/Acetaminophen [Hydrocodone-Acetamin 5-325 mg] 1 - 2 each PO Q6H PRN #10 tablet PRN Reason: Pain cephALEXin [Keflex] 500 mg PO BID #10 cap Referrals: PCP,None [Primary Care Provider] - Additional Instructions: Drink plenty of fluids. Take the keflex 2 times per day for 5 days. Take tylenol or motrin as needed for pain. If that does not help, try the hydrocodone. Follow up with your provider within a week. Please return if you are worse. Sepsis Event Note (ED) - Evaluation Sepsis Screening Result: No Definite Risk - Focused Exam Vital Signs: Vital Signs Temp Pulse Resp BP Pulse Ox 03/03/21 08:54 96.6 F L 70 12 146/84 H 100 - My Orders Last 24 Hours: My Active Orders 03/03/21 09:15 Peripheral IV Care [RC] . DIRECTED Abdomen Pelvis wo Cont [CT] Stat Sodium Chloride 0.9% [Saline Flush] 10 ml FLUSH ASDIRECTED PRN ED Antiemetic Medication Reflex [OM.PC] Stat Peripheral IV Insertion Adult [OM.PC] Stat - Assessment/Plan Last 24 Hours: My Active Orders 03/03/21 09:15 Peripheral IV Care [RC] . DIRECTED Abdomen Pelvis wo Cont [CT] Stat Sodium Chloride 0.9% [Saline Flush] 10 ml FLUSH ASDIRECTED PRN ED Antiemetic Medication Reflex [OM.PC] Stat Peripheral IV Insertion Adult [OM.PC] Stat
--- NOTE | 2021-03-03 18:45 | CT ---
CT abdomen and pelvis Technical: Multiple axial sections were obtained from above the dome of the diaphragm inferiorly through the pubic symphysis. Intravenous and oral contrast were not utilized. Reconstructed coronal and sagittal images were obtained. Comparison: Prior CT abdomen and pelvis exam of 06/20/16. Findings: Visualized lung bases show nothing acute. Noncontrast appearance of the liver shows no focal abnormality. Spleen size is normal. Pancreas appears within normal limits. Gallbladder contains no calcified stones. Abdominal aorta shows diffuse atherosclerotic calcification which continues into the iliac vessels. Atherosclerotic calcification continues into the iliac vessels. No aneurysm is seen. No retroperitoneal adenopathy or mesenteric abnormalities are seen. Minimal fat-containing umbilical hernia is noted. Appendix is seen which is normal. No pelvic mass or adenopathy is seen. Right and left kidneys show no abnormal calcifications. No ureteral dilatation or ureteral stone is seen. Bone window settings were reviewed which show no acute osseous finding. Impression: 1. Nothing acute is seen on CT study of the abdomen and pelvis. 2. No renal calculi, ureteral dilatation or ureteral stone is seen. 3. Other findings believed to be incidental and chronic as noted above. Diagnostic code #2 I agree with preliminary report from [facility], finalized on 03/03/21, 11:32 AM BEEF LUGGER, code 1
== END 2021-03-03 13:00 | disposition home or self-care (01) ==
LOC: JD.ED 08:26
DX: N39.0 Urinary tract infection, site not specified (principal); Z72.0 Tobacco use; Z88.2 Allergy status to sulfonamides
CPT/HCPCS: 36415; 74176; 74176-26; 80053; 81001; 83690; 85025; 96365; 96375; 96376; 99284-25; J0696; J1170; J1885; J2405; J7030

== ENCOUNTER 2021-10-07 15:32 | Emergency (ER) | payer OTHER ==
[2021-10-07 16:40] VITALS: BP 152/87; PULSE 68
[2021-10-07] MEDS ORDERED: Sodium Chloride 0.9% 1,000 ML IV SCH (16:45)
[2021-10-07] MEDS ORDERED: Sodium Chloride 0.9% 10 ML Syringe FLUSH PRN ×2 (16:45→18:31)
[2021-10-07] MEDS ORDERED: HYDROmorphone 1 MG/ML Syringe IVPUSH STA (16:45)
[2021-10-07] MEDS ORDERED: Ondansetron 4 MG/2 ML SDV IVPUSH ONE (16:45)
[2021-10-07 17:38] LABS: ESTIMATED GFR 99 mL/min (>60)
[2021-10-07] MEDS ORDERED: HYDROmorphone 0.5 MG/0.5 ML Syringe IVPUSH ONE (18:25)
[2021-10-07] MEDS ORDERED: Iopamidol 612 MG/ML 100 ML Bottle IVPUSH ONE (18:31)
[2021-10-07] MEDS ORDERED: Magnesium Citrate Solution 296 ML Bottle PO ONE (19:44)
== END 2021-10-07 20:00 | disposition home or self-care (01) ==
LOC: JD.ED 15:32
DX: K59.00 Constipation, unspecified (principal); K21.9 Gastro-esophageal reflux disease without esophagitis; Z72.0 Tobacco use; Z88.2 Allergy status to sulfonamides; Z79.899 Other long term (current) drug therapy
CPT/HCPCS: 36415; 74177; 80053; 81001; 82977; 83690; 85025; 86140; 96361; 96374; 96375; 96376; 99284; A9270; J1170; J2405; J3490; J7030; Q9967; 99283

== ENCOUNTER 2021-12-27 00:08 | Emergency (ER) | payer OTHER ==
[2021-12-27 00:20] VITALS: BP 137/82; PULSE 87
[2021-12-27] MEDS ORDERED: Acetaminophen/HYDROcodone 325-5 MG Tab PO ONE (00:53)
[2021-12-27] MEDS ORDERED: Ondansetron 4 MG Tab.DIS PO ONE (00:54)
== END 2021-12-27 01:14 | disposition home or self-care (01) ==
LOC: JD.ED 00:08
DX: S06.9X0A Unspecified intracranial injury without loss of consciousness, initial encounter (principal); F17.210 Nicotine dependence, cigarettes, uncomplicated; Z88.2 Allergy status to sulfonamides; Z86.16 Personal history of COVID-19; Z90.710 Acquired absence of both cervix and uterus; W22.8XXA Striking against or struck by other objects, initial encounter; Y99.0 Civilian activity done for income or pay
CPT/HCPCS: 99282; 99283; A9270-GY

== ENCOUNTER 2022-04-18 11:12 | Emergency (ER) | payer OTHER ==
[2022-04-18] MEDS ORDERED: HYDROmorphone 0.5 MG/0.5 ML Syringe IVPUSH ONE (12:34)
[2022-04-18] MEDS ORDERED: Metoclopramide 10 MG/2 ML SDV IVPUSH ONE (12:34)
[2022-04-18] MEDS ORDERED: Ketorolac 30 MG/ML SDV IVPUSH SCH (12:45)
[2022-04-18] MEDS ORDERED: Dextrose 5%-0.9% NaCl 1,000 ML IV SCH (12:45)
[2022-04-18 13:29] LABS: ESTIMATED GFR 84 mL/min (>60)
[2022-04-18] MEDS ORDERED: methylPREDNISolone Sodium Succinate 125 MG/2 ML SDV IVPUSH ONE (13:55)
[2022-04-18 14:53] VITALS: BP 107/69; PULSE 86
== END 2022-04-18 15:03 | disposition home or self-care (01) ==
LOC: JD.ED 11:12
DX: M25.531 Pain in right wrist (principal); M25.532 Pain in left wrist; M25.571 Pain in right ankle and joints of right foot; M25.572 Pain in left ankle and joints of left foot; K21.9 Gastro-esophageal reflux disease without esophagitis; Z88.2 Allergy status to sulfonamides
CPT/HCPCS: 36415; 80053; 81001; 83735; 84443; 84550; 85025; 85652; 86038; 86140; 86430; 96365; 96375; 99283; J1170; J1885; J2765; J2930; J7042